=== PATIENT | male | born 1960 | race African-American/Black ===

== ENCOUNTER 2017-03-08 10:55 | Emergency (ER) | payer SELFPAY ==
[2017-03-08 11:10] VITALS: PULSE 67; TEMP 98.1; BMI 39.4
--- NOTE | 2017-03-08 11:17 | PDOC ---
History of Present Illness - General Chief Complaint: Blood Pressure Problem Stated Complaint: HYPERTENSION Time Seen by Provider: 03/08/17 11:01 History Source: Patient, Primary Care Provider Exam Limitations: No Limitations - History of Present Illness Initial Comments: This is a 56 YOM with h/o HTN on ramipril, CML on imatinib, and type II IDDM on 30U Lantus bid only, who was instructed to come to the ED by his PCP where his blood pressure was measured to be higher than normal at 190/102. The patient himself notes only slight headache to the top of his head, and slight left flank pain since awakening this morning from sleeping on the cough, but no other symptoms, and he otherwise has been feeling well lately. He worked from midnight-8am last night and went for a routine yearly physical at his PCP's office after that shift, which is where they incidentally measured his BP to be elevated. He normally takes his ramipril between noon and 2pm but he cannot remember whether or not he took it yesterday, and has not yet taken it today. He drank a cup of coffee overnight at about 3am, which is something he does not normally do because in the past it has caused increased blood pressure. He has not taken his morning Lantus yet today d/t his PCP appointment, and has not taken his blood glucose either. He additionally ate more sugar than normal this morning, and this has caused his pressures to increase in the past as well. He denies numbness, tingling, weakness, vision changes, or other symptoms. Past History - Past Medical History Allergies/Adverse Reactions: Allergies Allergy/AdvReac Type Severity Reaction Status Date / Time No Known Allergies Allergy Verified 03/08/17 11:04 Home Medications: Ambulatory Orders Insulin Glargine,Hum.rec.anlog [Lantus (10mL VIAL) -] 30 units SQ BID 10/24/15 Imatinib Mesylate [Gleevec] 400 mg PO DAILY 03/08/17 Metoprolol Succinate 50 mg PO DAILY #7 tab.er.24h 03/08/17 Ramipril 5 mg PO DAILY 03/08/17 Cancer: Yes (CLL) Diabetes: Yes HTN: Yes - Immunization History Immunization Up to Date: Yes - Suicide/Smoking/Psychosocial Hx Smoking Status: No Smoking History: Never smoked Have you smoked in the past 12 months: No Number of Cigarettes Smoked Daily: 0 Hx Alcohol Use: No Drug/Substance Use Hx: No Substance Use Type: None Review of Systems - Review of Systems Able to Perform ROS?: Yes Constitutional: No: Chills, Fever, Unexplained wgt Loss HEENTM: No: Nose Congestion, Throat Pain Respiratory: No: Cough, Shortness of Breath Cardiac (ROS): No: Chest Pain, Palpitations ABD/GI: Yes: Other (left flank pain). No: Constipated, Diarrhea, Nausea, Vomiting : No: Burning, Dysuria Musculoskeletal: No: Back Pain, Neck Pain Integumentary: No: Bruising, Rash Neurological: Yes: Headache. No: Numbness, Tingling, Weakness, Dizziness Endocrine: No: Unexplained Weight Gain, Unexplained Weight Loss *Physical Exam - Physical Exam General Appearance: Yes: Nourished, Appropriately Dressed, Other (slightly tired -appearing very tall adult male in no distress who is answering questions appropriately, appears comfortable). No: Apparent Distress HEENT: positive: EOMI, Normal Voice, Hearing Grossly Normal, Other (right pupil round and reactive to light, left pupil fixed and dilated states chronic). negative: Scleral Icterus (R), Scleral Icterus (L), Nasal Congestion Neck: positive: Trachea midline, Supple. negative: Tender, Rigid Respiratory/Chest: positive: Lungs Clear, Normal Breath Sounds. negative: Respiratory Distress, Crackles, Rhonchi, Stridor, Wheezing Cardiovascular: positive: Regular Rhythm, Regular Rate, S1, S2. negative: Edema , JVD, Murmur Gastrointestinal/Abdominal: positive: Normal Bowel Sounds, Soft, Protuberent, Other. negative: Tender, Organomegaly, Pulsatile Mass, Guarding Musculoskeletal: positive: Normal Inspection. negative: CVA Tenderness, Decreased Range of Motion, Vertebral Tenderness Extremity: positive: Normal Capillary Refill, Normal Inspection, Normal Range of Motion. negative: Tender, Cyanosis Integumentary: positive: Normal Color, Dry, Warm. negative: Erythema, Rash, Bruising Neurologic: positive: communications agent II-XII NML intact, Fully Oriented, Alert, Normal Mood/ Affect, Normal Response, Motor Strength 5/5, Finger to Nose (normal). negative : EOM Palsy, Facial Droop, Numbness, Sensory Deficit, Confused, Disoriented ED Treatment Course - LABORATORY CBC & Chemistry Diagram: 03/08/17 11:21 03/08/17 11:21 Medical Decision Making - Medical Decision Making 56 YOM with HTN, IDDM, CML p/w high BP at PCP's office, slight LESTER, slight left flank pain. May not have taken his antihypertensive yesterday, drank coffee and ate sugar this morning, no morning Lantus yet. On exam BP is 199/120, otherwise VS wnl, no distress, appears tired. DDX IBNLT essential HTN with med non-adherence/caffeine and sugar intake, HTNive emergency, HHS, DKA, AAA, ACS, AD, etc. Ordered is [facility]CD CMP Cardiac panel EKG. 03/08/17 12:15 Patient's blood pressure spontaneously decreases to 166/97, same arm (right), while resting. He is offered head CT given that his systolic BP initially was nearly 200. Patient declines head CT and states his headache has resolved already. He is given his normal midday dose of ramipril here in the ED. 03/08/17 12:20 CK total is 415, awaiting remaining results from lab. 03/08/17 12:50 ED staff spoke with lab regarding remaining cardiac panel results. public health technologist states results will be in the EMR in 20 minutes. 03/08/17 13:13 I spoke with the lab again as results are still not yet in the EMR. They notify me that the troponin is negative, CK index pending. 03/08/17 13:15 Lab calls to notify that the CK-MB is 5.4, CK-I is 1.2. 03/08/17 13:19 Patient asymptomatic at this time, BP is currently Pt is appropriate for discharge home with close OP followup. He is advised to not work tonight, work note is given to return to work the night of 03/10/17 (tomorrow night at midnight). He is instructed to take his ramipril as prescribed, same time every day, and avoid caffeine and excess sugars. Return precautions are discussed. *DC/Admit/Observation/Transfer Diagnosis at time of Disposition: Hypertension Qualifiers: Hypertension type: unspecified Qualified Code(s): I10 - Essential (primary) hypertension Caffeine adverse reaction Qualifiers: Encounter type: initial encounter Qualified Code(s): T43.615A - Adverse effect of caffeine, initial encounter Muscle strain of left upper back Qualifiers: Encounter type: initial encounter Qualified Code(s): S29.012A - Strain of muscle and tendon of back wall of thorax, initial encounter - Discharge Dispostion Disposition: HOME Condition at time of disposition: Stable - Prescriptions Prescriptions: Metoprolol Succinate 50 mg PO DAILY #7 tab.er.24h - Referrals - Patient Instructions Printed Discharge Instructions: DI for High Blood Pressure Additional Instructions: You were seen in the ER for elevated blood pressure with a slight headache and slight left flank pain. We did find your blood pressure to be high, and gave you your normal dose of ramipril, as well as another blood pressure medicine called metoprolol. We did lab work on your blood and did not find any concerning abnormalities. We also took an electrocardiogram which showed only chronic changes in your heart activity (nothing new that was concerning). Please start taking your home ramipril again tomorrow at the normal time. Please also take the metoprolol we are sending to your pharmacy. Please avoid caffeine and excess sugar. Please follow up with your PCP in the next week, or return to the ER for any new or worsening symptoms (especially chest pain, headache, etc) or for elevated blood pressure at home. - Post Discharge Activity
--- NOTE | 2017-03-08 11:41 | PDOC ---
Attending Attestation - Resident Resident Name: LoraVita - ED Attending Attestation I have performed the following: I have examined & evaluated the patient, The case was reviewed & discussed with the resident, I agree w/resident's findings & plan, Exceptions are as noted - HPI HPI: 03/08/17 11:35 56 M with h/o HTN, DM, CML presenting to ER with elevated BP. Pt was in PMD's office and found to have BP 190s systolic and was subsequently sent to ER for management. Pt is on ramipril 5mg daily. Per conversation with PMD, Dr. Lopes , pt has questionable compliance with his meds. Pt admits that he does not recall if he took his ramipril yesterday. Pt denies CP/SOB. Endorses mild LESTER without N/V. - Physicial Exam PE: 03/08/17 11:45 "GENERAL: Awake, alert, and fully oriented, in no acute distress HEAD: No signs of trauma EYES: PERRLA, EOMI, sclera anicteric, conjunctiva clear ENT: Auricles normal inspection, hearing grossly normal, nares patent, oropharynx clear without exudates. Moist mucosa NECK: Nontender, no stepoffs, Normal ROM, supple, no lymphadenopathy, JVD, or masses LUNGS: Breath sounds equal, clear to auscultation bilaterally. No wheezes, and no crackles HEART: Regular rate and rhythm, normal S1 and S2, no murmurs, rubs or gallops ABDOMEN: Soft, nontender, normoactive bowel sounds. No guarding, no rebound. No masses EXTREMITIES: Normal range of motion, no edema. No clubbing or cyanosis. No cords, erythema, or tenderness NEUROLOGICAL: Cranial nerves II through XII intact. 5/5 strength and sensation in all extremities, Normal speech, normal gait SKIN: Warm, Dry, normal turgor, no rashes or lesions noted. " - Medical Decision Making 03/08/17 11:45 56 M with hypertension, BP 190s in ER. Only complaint at this time is mild headache. Will r/o end organ damage with basic labs, head CT. - Labs, trop - CT head - Home dose ramipril - Reassess 03/08/17 12:18 Pt's BP improved to 160 systolic before any intervention. LESTER spontaneously resolved. Pt with non-focal neuro exam. Pt does not wish to have CT head at this time. Given resolution of LESTER with improvement in BP and non-focal exam, will defer CT imaging for now. Labs wnl. Pt reassessed s/p ramipril and metoprolol. Vitals now improved. Pt continues to appear well with no complaints. Clinically stable for DC. Will send home with script for metoprolol to take in conjunction with his ramipril. Discussed with pt's PMD Dr. Lopes, who agrees with plan. I discussed the physical exam findings, ancillary test results and final diagnoses with the patient. I answered all of the patient's questions. The patient was satisfied with the care received and felt comfortable with the discharge plan and treatment plan. The patient agrees to follow up with the primary care physician within 24-72 hours for further management of his blood pressure. Heart Score/ECG Review - ECG Impressions Comment:: 03/08/17 13:27 NSR, no ADRIAN/STDs, TWI in inferior leads present on prior EKG 2011, incomplete RBBB also present on prior EKG
[2017-03-08 11:48] LABS: BASO % 0.9 % (0-2.0); EOS % 1.2 % (0-4.5); HEMATOCRIT 38.2 % (35.4-49); HEMOGLOBIN 12.7 GM/dl (11.7-16.9); LYMPH % 20.7 % (8-40); MCH 29.9 pg (25.7-33.7); MCHC 33.1 g/dl (32.0-35.9); MEAN CELL VOLUME 90.4 fl (80-96); MEAN PLT VOLUME 11.3 fl (7.5-11.1); MONO % 7.7 % (3.8-10.2); NEUT % 69.5 % (42.8-82.8); PLATELET COUNT 103 K/MM3 (134-434); RBC 4.23 M/mm3 (4.00-5.60); RDW 14.7 % (11.9-15.9); WHITE BLOOD COUNT 8.7 K/mm3 (4.0-10.8)
[2017-03-08] MEDS ORDERED: RAMIPRIL 5 MG CAPSULE (FP) PO ONE (11:49)
[2017-03-08 12:15] LABS: ALBUMIN 3.6 g/dl (3.5-5.0); ALK PHOS 70 U/L (32-92); ANION GAP 2 (8-16); BILIRUBIN,TOTAL 0.8 mg/dl (0.2-1.0); BLOOD UREA NITROGEN 14 mg/dl (7-18); CALCIUM 8.4 mg/dl (8.4-10.2); CHLORIDE 106 mmol/L (98-107); CO2 26 mmol/L (22-28); CREATININE 1.2 mg/dl (0.6-1.3); GLUCOSE,RANDOM 185 mg/dl (74-106); POTASSIUM 3.5 mmol/L (3.5-5.1); SGOT/AST 20 U/L (10-42); SGPT/ALT 16 U/L (10-40); SODIUM 134 mmol/L (136-145); TOT PROT 6.1 g/dl (6.4-8.3)
[2017-03-08] MEDS ORDERED: LABETALOL HCL 200 MG TABLET (FP) PO ONE (12:57)
[2017-03-08] MEDS ORDERED: METOPROLOL SUCCINATE 50 MG TAB.SR.24H (FP) PO ONE (13:00)
[2017-03-08] MEDS ORDERED: METOPROLOL SUCCINATE 50 MG TAB.SR.24H (FP) ONE (13:01)
[2017-03-08 13:57] VITALS: BP 169/92
--- NOTE | 2017-03-09 09:00 | EKG ---
Test Reason : Blood Pressure : / mmHG Vent. Rate : 062 BPM Atrial Rate : 062 BPM P-R Int : 160 ms QRS Dur : 100 ms QT Int : 416 ms P-R-T Axes : 063 -29 -52 degrees QTc Int : 422 ms NORMAL SINUS RHYTHM INCOMPLETE RIGHT BUNDLE BRANCH BLOCK MINIMAL VOLTAGE CRITERIA FOR LVH, MAY BE NORMAL VARIANT T WAVE ABNORMALITY, CONSIDER INFERIOR ISCHEMIA ABNORMAL ECG NO PREVIOUS ECGS AVAILABLE Confirmed by PETRONA WHITTINGTON MD ([id number]) on 03/09/2017 9:00:38 AM Referred By: MD ZHOU Confirmed By:PETRONA WHITTINGTON MD
== END 2017-03-08 14:24 | disposition home or self-care (01) ==
LOC: FER 10:55
DX: I10 Essential (primary) hypertension (principal); T43.615A Adverse effect of caffeine, initial encounter; S29.012A Strain of muscle and tendon of back wall of thorax, initial encounter; C91.10 Chronic lymphocytic leukemia of B-cell type not having achieved remission; E11.9 Type 2 diabetes mellitus without complications; Z79.4 Long term (current) use of insulin
CPT/HCPCS: 36415; 80053; 82550; 82553; 84484; 85025; 93005; 99282-25

== ENCOUNTER 2017-07-23 07:44 | Emergency (ER) | payer OTHER ==
[2017-07-23 07:58] VITALS: PULSE 70; TEMP 98.7; BMI 35.6
--- NOTE | 2017-07-23 08:08 | PDOC ---
History of Present Illness - General Chief Complaint: Blood Sugar Problem Stated Complaint: FATIGUE POSSIBLE ELEVATED BLOOD SUGAR Time Seen by Provider: 07/23/17 07:49 History Source: Patient Exam Limitations: No Limitations - History of Present Illness Initial Comments: 07/23/17 08:11 57-year-old gentleman history of hypertension, CML, type II DM on insulin glargine presents for evaluation of malaise/generalized weakness and possible hyperglycemia. Patient states that he's been feeling generally weak, malaise for the past 2 weeks, he went to his PMD had blood work noted to have blood sugar of 405 yesterday. The patient also endorses urinating more but also notes he drinks a lot which is typical for him. The patient denies any recent fever, chills, chest pain, shortness of breath, coughing, nausea, vomiting or diarrhea , dysuria, blood per rectum, headache, dizziness, vision changes, numbness, tingling, weakness, abdominal pain, back pain, leg swelling. The patient states he has been having some dietary indiscretion he is eating more cookies and sweets. Past History - Past Medical History Allergies/Adverse Reactions: Allergies Allergy/AdvReac Type Severity Reaction Status Date / Time No Known Allergies Allergy Verified 07/23/17 07:58 Home Medications: Ambulatory Orders Ramipril 5 mg PO DAILY 03/08/17 Insulin Glargine,Hum.rec.anlog [Lantus] 30 unit SQ BID 07/23/17 Nilotinib HCl [Tasigna] 50 mg PO BID 07/23/17 Cancer: Yes (CML) COPD: No Diabetes: Yes HTN: Yes Hypercholesterolemia: Yes - Immunization History Immunization Up to Date: Yes - Suicide/Smoking/Psychosocial Hx Smoking Status: No Smoking History: Never smoked Have you smoked in the past 12 months: No Number of Cigarettes Smoked Daily: 0 Information on smoking cessation initiated: No Hx Alcohol Use: No Drug/Substance Use Hx: No Substance Use Type: None Review of Systems - Review of Systems Able to Perform ROS?: Yes Comments:: 07/23/17 08:14 Constitutional - +malaise no reported Fever, Chills, HEENT: no reported vision changes, sore throat Respiratory: no reported cough, sob, hemoptysis Cardiac: no reported chest pain, palpitations, light headedness, leg swelling Abd/GI: no reported abd pain, nausea, vomiting, blood per rectum, melena, diarrhea : +polyuria no reported dysuria, frequency, discharge Musculskelatal - no reported back pain, joint swelling skin - no reported bruising, erythema, rash neurological: no reported headache, numbness, focal weakness, tingling, ataxia, hematologic: no reported easy bruising, easy bleeding *Physical Exam - Vital Signs Last Vital Signs Temp Pulse Resp BP Pulse Ox 98.7 F 70 20 188/108 99 07/23/17 07:47 07/23/17 07:47 07/23/17 07:47 07/23/17 07:47 07/23/17 07:47 - Physical Exam Comments: 07/23/17 08:15 GENERAL: The patient is awake, alert, and fully oriented, Nontoxic - in no acute distress. HEAD: Normocephalic, atraumatic. EYES: extraocular movements intact, sclera anicteric, conjunctiva clear. ENT: Normal voice, Moist mucous membranes. NECK: Normal range of motion, supple LUNGS: Breath sounds equal, clear to auscultation bilaterally. No wheezes, no rhonchi, no rales. HEART: Regular rate and rhythm, normal S1 and S2 without murmur, rub or gallop. ABDOMEN: Soft, nontender, normoactive bowel sounds. No guarding, no rebound. . No CVA tenderness EXTREMITIES: Normal range of motion, no edema. No clubbing or cyanosis. No cords, erythema, or tenderness. NEUROLOGICAL: No facial assymetry, Normal speech, PSYCH: Normal mood, normal affect. SKIN: Warm, Dry, normal turgor, Heart Score/ECG Review - ECG Impressions Comment:: 07/23/17 08:24 Twelve-lead EKG was performed and reviewed by me. There is normal sinus rhythm with a normal rate. Rate of 65 T wave inversion in inferior leads ((present on prior EKGs dated March 08 2017 ) J-point elevation with ST elevation in the anterior leads (present on prior EKGs dated March 08 2017) No significant change when compared with prior EKG ED Treatment Course - LABORATORY CBC & Chemistry Diagram: 07/23/17 08:54 07/23/17 08:54 Medical Decision Making - Medical Decision Making 07/23/17 08:15 57-year-old gentleman history of hypertension, diabetes, CML presenting with malaise for several weeks without any focal complaints. his exam is unremarkable. Vitals unremarkable Differential for this patient's symptoms includes possible, anemia, metabolic derangements, hyperglycemia, DKA, ACS Will obtain screening blood work, screening EKG Obtain BGM if the patient is hyperglycemic will fluids and insulin 07/23/17 09:48 Patient's blood work was reviewed and noted for thrombocytopenia to 32, no signs of bleeding, anemia. The patient states that he is aware of thrombocytopenia is notified by his doctor that is thought to be secondary to his medications he is on for his CML. 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 His blood sugar is elevated to 387, will give the patient some fluids will recheck No signs of DKA Serum acetones negative 07/23/17 10:49 pts blodo sugar improved to 325 will dc the pt with pmd and endocrine fu. The pt has an endo referral from his PMD and he just has yet to call for an appointment. i recommendd the pt call [facility] to make the ppt and to fu with his doctor for evaluation of his blood sugar also recommended the pt to stay away from sweets and carbs and to increase his physical activity. I discussed the physical exam findings, ancillary test results and final diagnoses with the patient. I answered all of the patient's questions. The patient was satisfied with the care received and felt comfortable with the discharge plan and treatment plan. The patient will call their primary care physician within 24 hours to arrange follow-up and will return to the Emergency Department with any new, persistent or worsening symptoms. *DC/Admit/Observation/Transfer Diagnosis at time of Disposition: Hyperglycemia, Thrombocytopenia - Discharge Dispostion Disposition: HOME Condition at time of disposition: Improved Decision to Admit order: No - Referrals Referrals: Hilario Rojas MD [Staff Physician] - - Patient Instructions Printed Discharge Instructions: DI for Hyperglycemia -- Adult Additional Instructions: Return to the emergency department immediately with ANY new, persistent or worsening symptoms. Your platelets were low and you have high blood sugar. Please schedule the appointment with your label rewinder for further management. You MUST call and follow up with your doctorfor further evaluation of your symptoms. Results were discussed with you. Please make sure your doctor reviews the results of your emergency evaluation. Print Language: IRANIAN - Post Discharge Activity
[2017-07-23] MEDS ORDERED: HEMOQUE TEST 1 EACH EACH ONE ×2 (08:15→10:38)
[2017-07-23 08:39] LABS: URINE APPEARANCE CLEAR; URINE BILIRUBIN NEGATIVE (NEGATIVE); URINE COLOR YELLOW; URINE GLUCOSE (UA) 2+ (NEGATIVE); URINE KETONE NEGATIVE (NEGATIVE)
[2017-07-23 08:40] LABS: URINE LEUK ESTERASE NEGATIVE (NEGATIVE); URINE NITRITE NEGATIVE (NEGATIVE); URINE PROTEIN 2+ (NEGATIVE); URINE UROBILINOGEN 0.2 (0.2-1.0)
[2017-07-23 09:19] LABS: ALBUMIN 3.8 g/dl (3.5-5.0); ALK PHOS 78 U/L (32-92); ANION GAP 6 (8-16); BILIRUBIN,TOTAL 1.2 mg/dl (0.2-1.0); BLOOD UREA NITROGEN 21 mg/dl (7-18); CALCIUM 8.9 mg/dl (8.4-10.2); CHLORIDE 101 mmol/L (98-107); CO2 25 mmol/L (22-28); CREATININE 1.2 mg/dl (0.6-1.3); HEMATOCRIT 35.5 % (35.4-49); HEMOGLOBIN 12.1 GM/dl (11.7-16.9); MCH 29.5 pg (25.7-33.7); MCHC 33.9 g/dl (32.0-35.9); MEAN CELL VOLUME 87.1 fl (80-96); RBC 4.08 M/mm3 (4.00-5.60); RDW 16.1 % (11.9-15.9); SGOT/AST 18 U/L (10-42); SGPT/ALT 20 U/L (10-40); SODIUM 132 mmol/L (136-145); TOT PROT 6.2 g/dl (6.4-8.3); WHITE BLOOD COUNT 4.9 K/mm3 (4.0-10.8)
--- NOTE | 2017-07-23 09:23 | EKG ---
Test Reason : Blood Pressure : / mmHG Vent. Rate : 065 BPM Atrial Rate : 065 BPM P-R Int : 148 ms QRS Dur : 096 ms QT Int : 418 ms P-R-T Axes : 071 -30 -37 degrees QTc Int : 434 ms NORMAL SINUS RHYTHM LEFT AXIS DEVIATION ST ELEVATION, CONSIDER EARLY REPOLARIZATION, PERICARDITIS, OR INJURY T WAVE ABNORMALITY, CONSIDER INFERIOR ISCHEMIA ABNORMAL ECG WHEN COMPARED WITH ECG OF 08-MAR-2017 11:15, NO SIGNIFICANT CHANGE WAS FOUND Confirmed by PJ HERNANDEZ, DUY ([id number]) on 07/23/2017 9:22:38 AM Referred By: RAMON WOMACK Confirmed By:DUY OLIVA MD
[2017-07-23 09:25] LABS: ADD RBC MORPHOLOGY YES
[2017-07-23 09:26] LABS: PLATELET COUNT 32 K/MM3 (134-434)
[2017-07-23 09:32] LABS: GLUCOSE,RANDOM 386 mg/dl (74-106)
[2017-07-23 09:40] LABS: URINE RBC 0-3 /hpf (0-3); URINE WBC 0-2 (0-2)
[2017-07-23] MEDS ORDERED: SODIUM CHLORIDE 1,000 ML IV ONE (09:48)
[2017-07-23 10:25] LABS: PLATELET ESTIMATE DECREASED
[2017-07-23 10:45] VITALS: BP 142/76
== END 2017-07-23 11:02 | disposition home or self-care (01) ==
LOC: FER 07:44
PROC: 3E0337Z Introduction of Electrolytic and Water Balance Substance into Peripheral Vein, Percutaneous Approach (ICD-10-PCS; principal; 2017-07-23)
DX: D69.6 Thrombocytopenia, unspecified (principal); E11.65 Type 2 diabetes mellitus with hyperglycemia; C92.10 Chronic myeloid leukemia, BCR/ABL-positive, not having achieved remission; I10 Essential (primary) hypertension
CPT/HCPCS: 36415; 80053; 81003; 81015; 82009; 82962; 85025; 93005; 99283-25; J7030

== ENCOUNTER 2018-12-26 23:15 | Emergency (ER) | payer OTHER ==
[2018-12-26 23:33] VITALS: BP 202/117; PULSE 83; TEMP 99.2; BMI 34.0
--- NOTE | 2018-12-27 02:12 | PDOC ---
History of Present Illness - General Chief Complaint: Pain, Acute Stated Complaint: BURNING/RASH TO LEFT ANKLE Time Seen by Provider: 12/27/18 00:59 - History of Present Illness Initial Comments: 12/27/18 01:04 This 58-year-old man with a history of IDDM and CML presents with few day history of pruritus of a small area of the left heel. Patient states that the itchiness is particularly severe when he is walking around and subsides with rest. No history of trauma, swelling, pain in the area that is itchy. He has not noted any rash in the area. He has not had any insect bites and he does not have animals at home. He also has occasional burning sensation in his feet that he thinks may be related to bouts of constipation. He had a rash of the proximal portion of the left leg several months ago treated with ammonium lactate lotion. He states that he has no similar rash now Patient denies generalized pruritus, jaundice, extreme hyperglycemia (patient states that his blood sugar control is "adequate) Past History - Past Medical History Allergies/Adverse Reactions: Allergies Allergy/AdvReac Type Severity Reaction Status Date / Time No Known Allergies Allergy Verified 12/26/18 23:18 Home Medications: Ambulatory Orders Ramipril 5 mg PO DAILY 03/08/17 Insulin Glargine,Hum.rec.anlog [Lantus] 30 unit SQ BID 07/23/17 Nilotinib HCl [Tasigna] 50 mg PO BID 07/23/17 Cancer: Yes (CML) COPD: No Diabetes: Yes HTN: Yes Hypercholesterolemia: Yes - Immunization History Immunization Up to Date: Yes - Psycho Social/Smoking Cessation Hx Smoking Status: No Smoking History: Never smoked Have you smoked in the past 12 months: No Number of Cigarettes Smoked Daily: 0 Information on smoking cessation initiated: No Hx Alcohol Use: No Drug/Substance Use Hx: No Substance Use Type: None Review of Systems - Review of Systems Able to Perform ROS?: Yes Comments:: 12 point review of systems is negative except for what is noted in the history of present illness *Physical Exam - Vital Signs Last Vital Signs Temp Pulse Resp BP Pulse Ox 99.2 F 83 17 202/117 H 98 12/26/18 23:28 12/26/18 23:28 12/26/18 23:28 12/26/18 23:28 12/26/18 23:28 - Physical Exam Comments: GENERAL: Adult male, alert and oriented x3, no acute distress HEAD: Normal with no signs of trauma. EXTREMITIES: Left lower extremity-pruritic area (3 cm x 4 cm region below the lateral malleolus of the left ankle) has no rash, edema, erythema or other abnormality. No evidence of skin break or insect bites. NEUROLOGICAL: Cranial nerves II through XII grossly intact. Normal speech. No focal neurological deficits. MUSCULOSKELETAL: Back non-tender to palpation, no CVA tenderness SKIN: Warm, Dry, normal turgor, no rashes or lesions noted. Medical Decision Making - Medical Decision Making This 58-year-old man with a history of DM and CML presents with isolated area of itching; he has no evidence of generalized pruritus and no evidence of rash or edema/inflammation in the area of pruritus below his left lateral malleolus. Patient has been recommended to monitor the area closely; if he has any increase in swelling, redness or development of a rash he should return here. Likewise, he has development of generalized pruritus he should return here or see his doctor. He has follow-up with his oncologist on December 28. He should also plan to see his general medical doctor within 1 week. Meanwhile, if he has bothersome localized pruritus, he can use antihistamine( benadryl if he does not need to be alert/otherwise non-sedating antihistamines) Discharge - Discharge Information Problems reviewed: Yes Clinical Impression/Diagnosis: Pruritus Condition: Stable Disposition: HOME - Follow up/Referral - Patient Discharge Instructions Patient Printed Discharge Instructions: DI for Itching Additional Instructions: Benadryl 25 mg up to 3 times a day as needed for itching (this will make you sleepy) When you need to be alert, you can use Claritin/Zyrtec/Aure as needed for itching Follow-up with your oncologist on December 28 Plan to follow-up with your general medical doctor within the next 7 to 10 days Return to ER if you have severe itching or develop a rash/redness/swelling in the area - Post Discharge Activity Work/Back to School Note: Back to Work
== END 2018-12-27 02:30 | disposition home or self-care (01) ==
LOC: FER 23:15
DX: L29.9 Pruritus, unspecified (principal); E11.9 Type 2 diabetes mellitus without complications; C92.10 Chronic myeloid leukemia, BCR/ABL-positive, not having achieved remission; E78.00 Pure hypercholesterolemia, unspecified; I10 Essential (primary) hypertension; Z79.4 Long term (current) use of insulin
CPT/HCPCS: 99281-25

== ENCOUNTER 2020-03-19 16:57 | Inpatient (IN) | payer OTHER ==
[2020-03-19 21:39] LABS: BASO % 4.4 % (0-2.0); EOS % 0.6 % (0-4.5); HEMOGLOBIN 8.7 GM/dL (11.7-16.9); LYMPH % 6.5 % (8-40); MCH 26.5 pg (25.7-33.7); MCHC 32.2 g/dl (32.0-35.9); MEAN CELL VOLUME 82.2 fl (80-96); MEAN PLT VOLUME 10.4 fl (7.5-11.1); MONO % 9.7 % (3.8-10.2); NEUT % 78.8 % (42.8-82.8); PLATELET COUNT 331 K/MM3 (134-434); RBC 3.29 M/mm3 (4.00-5.60); RDW 17.1 % (11.9-15.9)
[2020-03-19 21:42] LABS: WHITE BLOOD COUNT 34.8 K/mm3 (4.0-10.0)
[2020-03-19 21:51] LABS: CHLORIDE 106 mmol/L (98-107); INR 1.2 (0.83-1.09); POTASSIUM 4.3 mmol/L (3.5-5.1); PROTHROMBIN TIME (PATIENT) 14.7 SEC (9.7-13.0); SODIUM 136 mmol/L (136-145)
[2020-03-19] MEDS ORDERED: SODIUM CHLORIDE 1,000 ML IV STA (21:52)
[2020-03-19 21:53] LABS: ALBUMIN 2.6 g/dl (3.4-5.0); ANION GAP 5 MMOL/L (8-16); CALCIUM 8.5 mg/dL (8.5-10.1); CO2 26 mmol/L (21-32)
[2020-03-19 21:54] LABS: ACTIVATED PTT 31.3 SECONDS (25.2-36.5); BLOOD UREA NITROGEN 19.8 mg/dL (7-18); GLUCOSE,RANDOM 318 mg/dL (74-106)
[2020-03-19 21:56] LABS: BILIRUBIN,DIRECT 0.2 mg/dL (0.0-0.2); CREATININE 2.1 mg/dL (0.55-1.3); SGOT/AST 12 U/L (15-37); SGPT/ALT 24 U/L (13-61)
[2020-03-19 21:58] LABS: BILIRUBIN,TOTAL 0.5 mg/dL (0.2-1); TOT PROT 6.7 g/dl (6.4-8.2)
[2020-03-19 21:59] LABS: ALK PHOS 91 U/L (45-117)
[2020-03-19 22:00] LABS: LDH 434 U/L (87-246)
[2020-03-19 22:29] LABS: VENOUS BASE EXCESS -1.7 mmol/L (-2-2); VENOUS O2 SATURATION 69.3 % (70-80); VENOUS PCO2 41.1 mmHg (38-52); VENOUS PH 7.373 (7.310-7.410)
[2020-03-19 22:41] LABS: ANISOCYTOSIS 2+; MACROCYTOSIS 0; PLATELET ESTIMATE NORMAL
[2020-03-20] MEDS ORDERED: SODIUM CHLORIDE 1,000 ML IV SCH ×2 (02:45→13:34)
[2020-03-20] MEDS: INSULIN SLIDING SCALE (NOVOLOG) 1 VIAL SQ SCH ×4 (06:31→21:03)
[2020-03-20 08:14] LABS: BASO % 4.2 % (0-2.0); EOS % 0.6 % (0-4.5); HEMATOCRIT 26.1 % (35.4-49); HEMOGLOBIN 8.5 GM/dL (11.7-16.9); LYMPH % 6.7 % (8-40); MCH 26.7 pg (25.7-33.7); MCHC 32.6 g/dl (32.0-35.9); MEAN CELL VOLUME 81.8 fl (80-96); MONO % 11.3 % (3.8-10.2); NEUT % 77.2 % (42.8-82.8); PLATELET COUNT 325 K/MM3 (134-434); RBC 3.19 M/mm3 (4.00-5.60); RDW 16.8 % (11.9-15.9)
[2020-03-20 08:26] LABS: POTASSIUM 4.2 mmol/L (3.5-5.1)
[2020-03-20 08:32] LABS: ALBUMIN 2.4 g/dl (3.4-5.0); CALCIUM 8.2 mg/dL (8.5-10.1)
[2020-03-20 08:33] LABS: MAGNESIUM 1.8 mg/dL (1.8-2.4)
[2020-03-20 08:35] LABS: CREATININE 1.9 mg/dL (0.55-1.3)
[2020-03-20 08:36] LABS: PHOSPHOROUS 3.7 mg/dL (2.5-4.9)
[2020-03-20 08:37] LABS: BILIRUBIN,TOTAL 0.5 mg/dL (0.2-1); TOT PROT 6.3 g/dl (6.4-8.2)
[2020-03-20] MEDS ORDERED: HEPARIN NA (PORCINE) 5,000 UNITS/ML 1ML VIAL SQ SCH (10:00)
[2020-03-20] MEDS ORDERED: ENOXAPARIN NA (PORCINE) 100 MG/1 ML DISP.SYRIN SQ SCH (10:30)
[2020-03-20] MEDS ORDERED: HEPARIN NA (PORCINE) 5,000 UNITS/ML 1ML VIAL ONE (11:08)
[2020-03-20 11:42] LABS: ANISOCYTOSIS 1+; MACROCYTOSIS 0; PLATELET ESTIMATE NORMAL
[2020-03-20 11:52] LABS: EPI CELLS 18 /uL (0-25.1); HYALINE CASTS 13 /uL (0-3.1); URINE APPEARANCE CLOUDY; URINE BACTERIA 85 /uL (0-1359); URINE BILIRUBIN NEGATIVE (NEGATIVE); URINE COLOR YELLOW; URINE GLUCOSE (UA) 2+ (NEGATIVE); URINE KETONE NEGATIVE (NEGATIVE); URINE LEUK ESTERASE NEGATIVE (NEGATIVE); URINE NITRITE NEGATIVE (NEGATIVE); URINE PROTEIN 3+ (NEGATIVE); URINE RBC 7 /uL (0-23.9); URINE UROBILINOGEN 0.2 mg/dL (0.2-1.0); URINE WBC 16 /uL (0-25.8)
[2020-03-20 12:24] LABS: WHITE BLOOD COUNT 35.3 K/mm3 (4.0-10.0)
[2020-03-20] MEDS ORDERED: LACTATED RINGERS SOLUTION 1,000 ML/1,000 ML INFUS.BAG IV SCH (15:30)
[2020-03-20] MEDS ORDERED: CEFTRIAXONE 1 GM/50 ML BAG ONE (16:10)
[2020-03-20] MEDS ORDERED: AZITHROMYCIN IVPB 500 MG/250 ML BAG IVPB ONE (16:10)
[2020-03-20] MEDS: LACTATED RINGERS SOLUTION 1,000 ML/1,000 ML INFUS.BAG IV SCH (16:15)
[2020-03-20] MEDS: CEFTRIAXONE 1 GM in DEXTROSE 5%-WATER - 50 ML IVPB SCH (16:15)
[2020-03-20] MEDS: AZITHROMYCIN IVPB 500 MG/250 ML BAG IVPB SCH (16:30)
[2020-03-20] MEDS: ATORVASTATIN CA 40 MG TABLET (FP) PO SCH (21:04)
[2020-03-21 00:01] VITALS: BMI 32.6
[2020-03-21] MEDS: INSULIN SLIDING SCALE (NOVOLOG) 1 VIAL SQ SCH ×4 (06:14→21:36)
[2020-03-21 08:02] LABS: BASO % 5.7 % (0-2.0); EOS % 1.1 % (0-4.5); HEMATOCRIT 23.4 % (35.4-49); HEMOGLOBIN 7.7 GM/dL (11.7-16.9); MCH 27.2 pg (25.7-33.7); MCHC 33.2 g/dl (32.0-35.9); MONO % 10.8 % (3.8-10.2); NEUT % 75.4 % (42.8-82.8); PLATELET COUNT 275 K/MM3 (134-434); RBC 2.85 M/mm3 (4.00-5.60); RDW 17.5 % (11.9-15.9)
[2020-03-21 08:24] LABS: POTASSIUM 4.5 mmol/L (3.5-5.1)
[2020-03-21 08:31] LABS: CALCIUM 7.7 mg/dL (8.5-10.1)
[2020-03-21 08:32] LABS: ALBUMIN 2.3 g/dl (3.4-5.0); BLOOD UREA NITROGEN 18.7 mg/dL (7-18); MAGNESIUM 1.7 mg/dL (1.8-2.4)
[2020-03-21 08:34] LABS: CREATININE 1.8 mg/dL (0.55-1.3)
[2020-03-21 08:35] LABS: PHOSPHOROUS 3.2 mg/dL (2.5-4.9)
[2020-03-21 08:36] LABS: BILIRUBIN,TOTAL 0.5 mg/dL (0.2-1); TOT PROT 5.7 g/dl (6.4-8.2)
[2020-03-21 08:38] LABS: WHITE BLOOD COUNT 32.9 K/mm3 (4.0-10.0)
[2020-03-21] MEDS ORDERED: MAGNESIUM OXIDE 400 MG TABLET (FP) PO ONE (08:55)
[2020-03-21] MEDS ORDERED: DEXTROSE 5%-WATER - 50 ML IVPB ONE (09:04)
[2020-03-21] MEDS ORDERED: cefTRIAXone SODIUM 1 GM VIAL ONE (09:04)
[2020-03-21] MEDS: ENOXAPARIN NA (PORCINE) 40 MG/0.4 ML DISP.SYRIN SQ SCH (09:35)
[2020-03-21] MEDS: CEFTRIAXONE 1 GM in DEXTROSE 5%-WATER - 50 ML IVPB SCH (09:35)
[2020-03-21 10:06] LABS: ANISOCYTOSIS 0; MACROCYTOSIS 0; PLATELET ESTIMATE NORMAL
[2020-03-21] MEDS: AZITHROMYCIN IVPB 500 MG/250 ML BAG IVPB SCH (10:58)
[2020-03-21] MEDS: LACTATED RINGERS SOLUTION 1,000 ML/1,000 ML INFUS.BAG IV SCH (15:59)
[2020-03-21] MEDS: POLYETHYLENE GLYCOL 3350 119 GM BTL PO SCH (16:45)
[2020-03-21] MEDS: INSULIN (LEVEMIR) 100 UNITS/ML UNITS SQ SCH (21:37)
[2020-03-21] MEDS: ATORVASTATIN CA 40 MG TABLET (FP) PO SCH (21:37)
[2020-03-22] MEDS: INSULIN (LEVEMIR) 100 UNITS/ML UNITS SQ SCH ×2 (07:00→21:48)
[2020-03-22] MEDS: INSULIN SLIDING SCALE (NOVOLOG) 1 VIAL SQ SCH ×4 (07:00→21:48)
[2020-03-22] MEDS ORDERED: cefTRIAXone SODIUM 1 GM VIAL ONE (08:21)
[2020-03-22] MEDS ORDERED: DEXTROSE 5%-WATER - 50 ML IVPB ONE (08:21)
[2020-03-22 09:04] LABS: BASO % 4.9 % (0-2.0); EOS % 0.7 % (0-4.5); HEMATOCRIT 24.5 % (35.4-49); HEMOGLOBIN 7.9 GM/dL (11.7-16.9); LYMPH % 6.7 % (8-40); MCH 26.6 pg (25.7-33.7); MCHC 32.2 g/dl (32.0-35.9); MEAN CELL VOLUME 82.6 fl (80-96); MONO % 10.2 % (3.8-10.2); NEUT % 77.5 % (42.8-82.8); PLATELET COUNT 252 K/MM3 (134-434); RBC 2.97 M/mm3 (4.00-5.60); RDW 17.5 % (11.9-15.9)
[2020-03-22 09:28] LABS: POTASSIUM 4.7 mmol/L (3.5-5.1); WHITE BLOOD COUNT 34.4 K/mm3 (4.0-10.0)
[2020-03-22 09:30] LABS: ALBUMIN 2.2 g/dl (3.4-5.0); CALCIUM 8.2 mg/dL (8.5-10.1)
[2020-03-22 09:31] LABS: BLOOD UREA NITROGEN 12.7 mg/dL (7-18); MAGNESIUM 1.6 mg/dL (1.8-2.4)
[2020-03-22 09:33] LABS: CREATININE 1.5 mg/dL (0.55-1.3); PHOSPHOROUS 3.1 mg/dL (2.5-4.9)
[2020-03-22 09:35] LABS: BILIRUBIN,TOTAL 0.4 mg/dL (0.2-1); TOT PROT 5.6 g/dl (6.4-8.2)
[2020-03-22] MEDS: ENOXAPARIN NA (PORCINE) 40 MG/0.4 ML DISP.SYRIN SQ SCH (09:54)
[2020-03-22] MEDS: CEFTRIAXONE 1 GM in DEXTROSE 5%-WATER - 50 ML IVPB SCH (09:54)
[2020-03-22] MEDS: POLYETHYLENE GLYCOL 3350 119 GM BTL PO SCH (09:57)
[2020-03-22] MEDS: AZITHROMYCIN IVPB 500 MG/250 ML BAG IVPB SCH (10:27)
[2020-03-22] MEDS ORDERED: MAGNESIUM OXIDE 400 MG TABLET (FP) PO ONE (10:45)
[2020-03-22 10:54] LABS: ANISOCYTOSIS 1+; MACROCYTOSIS 0; PLATELET ESTIMATE NORMAL; TEAR DROP CELLS 1+
[2020-03-22] MEDS: LACTATED RINGERS SOLUTION 1,000 ML/1,000 ML INFUS.BAG IV SCH (16:50)
[2020-03-22] MEDS: ATORVASTATIN CA 40 MG TABLET (FP) PO SCH (21:48)
[2020-03-23] MEDS: INSULIN SLIDING SCALE (NOVOLOG) 1 VIAL SQ SCH ×2 (06:28→11:23)
[2020-03-23] MEDS: INSULIN (LEVEMIR) 100 UNITS/ML UNITS SQ SCH (06:28)
[2020-03-23 07:49] LABS: BASO % 5.2 % (0-2.0); EOS % 0.8 % (0-4.5); HEMATOCRIT 25.2 % (35.4-49); HEMOGLOBIN 8.2 GM/dL (11.7-16.9); MCH 26.7 pg (25.7-33.7); MCHC 32.7 g/dl (32.0-35.9); MEAN CELL VOLUME 81.5 fl (80-96); MEAN PLT VOLUME 9.7 fl (7.5-11.1); MONO % 11.1 % (3.8-10.2); NEUT % 76.9 % (42.8-82.8); PLATELET COUNT 255 K/MM3 (134-434); RBC 3.09 M/mm3 (4.00-5.60); RDW 17.7 % (11.9-15.9)
[2020-03-23 08:17] LABS: POTASSIUM 4.6 mmol/L (3.5-5.1)
[2020-03-23 08:24] LABS: MAGNESIUM 1.7 mg/dL (1.8-2.4)
[2020-03-23 08:26] LABS: BLOOD UREA NITROGEN 11.4 mg/dL (7-18)
[2020-03-23 08:27] LABS: ALBUMIN 2.3 g/dl (3.4-5.0); CALCIUM 8.3 mg/dL (8.5-10.1)
[2020-03-23 08:28] LABS: CREATININE 1.4 mg/dL (0.55-1.3)
[2020-03-23 08:30] LABS: PHOSPHOROUS 3.6 mg/dL (2.5-4.9)
[2020-03-23 08:32] LABS: BILIRUBIN,TOTAL 0.3 mg/dL (0.2-1); TOT PROT 5.7 g/dl (6.4-8.2)
[2020-03-23 08:38] LABS: WHITE BLOOD COUNT 38.6 K/mm3 (4.0-10.0)
[2020-03-23] MEDS ORDERED: cefTRIAXone SODIUM 1 GM VIAL ONE (09:14)
[2020-03-23] MEDS ORDERED: DEXTROSE 5%-WATER - 50 ML IVPB ONE (09:14)
[2020-03-23] MEDS: CEFTRIAXONE 1 GM in DEXTROSE 5%-WATER - 50 ML IVPB SCH (09:27)
[2020-03-23] MEDS: ENOXAPARIN NA (PORCINE) 40 MG/0.4 ML DISP.SYRIN SQ SCH (09:27)
[2020-03-23] MEDS: POLYETHYLENE GLYCOL 3350 119 GM BTL PO SCH (09:28)
[2020-03-23 09:54] LABS: ANISOCYTOSIS 3+; MACROCYTOSIS 0; PLATELET ESTIMATE NORMAL; TEAR DROP CELLS 1+
[2020-03-23] MEDS: AZITHROMYCIN IVPB 500 MG/250 ML BAG IVPB SCH (10:51)
[2020-03-23] MEDS: LACTATED RINGERS SOLUTION 1,000 ML/1,000 ML INFUS.BAG IV SCH (12:29)
[2020-03-23] MEDS ORDERED: BUDESONIDE/FORMETEROL FUMARATE 80/4.5 mcg INHALER IH SCH (12:45)
[2020-03-23 13:54] VITALS: BP 152/85; PULSE 78; TEMP 98.5
== END 2020-03-23 16:45 | disposition home or self-care (01) | DRG 684 ==
LOC: JER 16:57 → JERBED 22:19 → INTOOBSV 22:19 → OBSVTOIN 03-20 02:36 → J4S 03-20 20:16
PROVIDERS: ADMIT Hospitalist; ATTEND Internal Medicine
DX: N17.9 Acute kidney failure, unspecified (principal); E78.00 Pure hypercholesterolemia, unspecified; Z85.6 Personal history of leukemia; I12.9 Hypertensive chronic kidney disease with stage 1 through stage 4 chronic kidney disease, or unspecified chronic kidney disease; E11.22 Type 2 diabetes mellitus with diabetic chronic kidney disease; N18.9 Chronic kidney disease, unspecified; E11.65 Type 2 diabetes mellitus with hyperglycemia; D64.9 Anemia, unspecified; D72.829 Elevated white blood cell count, unspecified; N28.1 Cyst of kidney, acquired; Z20.822 Contact with and (suspected) exposure to COVID-19
CPT/HCPCS: 36415; 71045-TC-FY; 76775-TC; 80053; 81003; 82248; 82436; 82550; 82553; 82565; 82607; 82728; 82747; 82803; 82962; 83036; 83540; 83550; 83605; 83615; 83735; 83880; 84100; 84133; 84300; 84439; 84443; 84484; 85014; 85025; 85379; 85610; 85730; 86140; 86769; 87040; 87086; 87804; 88300-TC; 93005; 93010; 99285-25; C9803; G0378; J1644; U0003

== ENCOUNTER 2020-04-03 13:43 | Emergency (ER) | payer OTHER ==
[2020-04-03 13:59] VITALS: BP 153/93; PULSE 104; TEMP 99.1; BMI 31.8
[2020-04-03] MEDS ORDERED: diphenhydrAMINE HCL 25 MG CAPSULE (FP) PO ONE ×2 (14:41→14:45)
== END 2020-04-03 15:09 | disposition home or self-care (01) ==
LOC: FER 13:43
DX: R21 Rash and other nonspecific skin eruption (principal)
CPT/HCPCS: 99283-25

== ENCOUNTER 2020-04-13 18:55 | Emergency (ER) | payer OTHER ==
[2020-04-13 19:05] VITALS: TEMP 98.1; BMI 31.2
[2020-04-13] MEDS ORDERED: SODIUM CHLORIDE 0.9% 500 ML INFUS.BAG IV ONE (21:12)
[2020-04-13] MEDS ORDERED: KETOROLAC TROMETHAMINE 30 MG/1 ML VIAL IVPUSH ONE (21:12)
[2020-04-13] MEDS ORDERED: METOCLOPRAMIDE HCL INJECTION 10 MG/2 ML VIAL IVPUSH ONE (21:12)
[2020-04-13] MEDS ORDERED: ACETAMINOPHEN 1000 MG/100 ML VIAL (NON FORMULARY) IVPB ONE (21:18)
[2020-04-13] MEDS ORDERED: KETOROLAC TROMETHAMINE 30 MG/1 ML VIAL ONE (21:22)
[2020-04-13] MEDS ORDERED: METOCLOPRAMIDE HCL INJECTION 10 MG/2 ML VIAL ONE (21:22)
[2020-04-13] MEDS ORDERED: ACETAMINOPHEN INJECTION 100 ML IVPB ONE (21:54)
[2020-04-13] MEDS ORDERED: DEXAMETHASONE SOD PHOSPHATE 20 MG/5 ML VIAL IVPB STA (23:26)
[2020-04-13] MEDS ORDERED: DEXAMETHASONE SOD PHOSPHATE 10 MG/1 ML VIAL ONE (23:29)
[2020-04-13] MEDS ORDERED: VALSARTAN 40 MG TABLET PO ONE (23:48)
[2020-04-14] MEDS ORDERED: VALSARTAN 80 MG TABLET ONE (00:05)
[2020-04-14 00:33] LABS: BASO % 1.2 % (0-2.0); EOS % 2.4 % (0-4.5); HEMATOCRIT 25.6 % (35.4-49); HEMOGLOBIN 8.5 GM/dL (11.7-16.9); LYMPH % 12.2 % (8-40); MCH 27.9 pg (25.7-33.7); MCHC 33.2 g/dl (32.0-35.9); MEAN CELL VOLUME 84.1 fl (80-96); MEAN PLT VOLUME 10.6 fl (7.5-11.1); MONO % 7.3 % (3.8-10.2); NEUT % 76.9 % (42.8-82.8); PLATELET COUNT 82 K/MM3 (134-434); RBC 3.05 M/mm3 (4.00-5.60); RDW 19.6 % (11.9-15.9); WHITE BLOOD COUNT 10.8 K/mm3 (4.0-10.0)
[2020-04-14 00:46] LABS: POTASSIUM 4.7 mmol/L (3.5-5.1)
[2020-04-14 00:48] LABS: CALCIUM 8.2 mg/dL (8.5-10.1)
[2020-04-14 00:49] LABS: ALBUMIN 2.7 g/dl (3.4-5.0); BLOOD UREA NITROGEN 18.7 mg/dL (7-18)
[2020-04-14 00:52] LABS: CREATININE 1.6 mg/dL (0.55-1.3)
[2020-04-14 00:54] LABS: BILIRUBIN,TOTAL 0.4 mg/dL (0.2-1); TOT PROT 5.8 g/dl (6.4-8.2)
[2020-04-14 01:59] LABS: ANISOCYTOSIS 2+; MACROCYTOSIS 2+; PLATELET ESTIMATE DECREASED
[2020-04-14 02:18] VITALS: BP 172/80; PULSE 78
== END 2020-04-14 02:17 | disposition home or self-care (01) ==
LOC: JERFT 18:55 → JER 18:55
PROC: 3E0333Z Introduction of Anti-inflammatory into Peripheral Vein, Percutaneous Approach (ICD-10-PCS; principal; 2020-04-13)
PROC: 3E033GC Introduction of Other Therapeutic Substance into Peripheral Vein, Percutaneous Approach (ICD-10-PCS; 2020-04-13)
PROC: 3E033GC Introduction of Other Therapeutic Substance into Peripheral Vein, Percutaneous Approach (ICD-10-PCS; 2020-04-13)
PROC: 3E0333Z Introduction of Anti-inflammatory into Peripheral Vein, Percutaneous Approach (ICD-10-PCS; 2020-04-13)
PROC: 3E033GC Introduction of Other Therapeutic Substance into Peripheral Vein, Percutaneous Approach (ICD-10-PCS; 2020-04-13)
DX: R51.9 Headache, unspecified (principal)
CPT/HCPCS: 36415; 70450-TC; 80053; 85025; 99284-25; J0131

== ENCOUNTER 2022-03-10 15:12 | Observation (INO) | payer OTHER ==
[2022-03-10 15:32] VITALS: BMI 31.2
[2022-03-10 19:09] LABS: BASO % 3.5 % (0-2.0); EOS % 0.6 % (0-4.5); HEMATOCRIT 29.8 % (35.4-49); HEMOGLOBIN 9.9 GM/dL (11.7-16.9); LYMPH % 4.9 % (8-40); MCH 26.6 pg (25.7-33.7); MCHC 33.1 g/dl (32.0-35.9); MEAN CELL VOLUME 80.4 fl (80-96); MEAN PLT VOLUME 10.5 fl (7.5-11.1); MONO % 8.9 % (3.8-10.2); NEUT % 82.1 % (42.8-82.8); PLATELET COUNT 131 10^3/uL (134-434); RDW 16.9 % (11.9-15.9)
[2022-03-10 19:12] LABS: WHITE BLOOD COUNT 42.2 K/mm3 (4.0-10.0)
[2022-03-10 19:30] LABS: CALCIUM 8.3 mg/dL (8.5-10.1)
[2022-03-10 19:31] LABS: ALBUMIN 3.1 g/dl (3.4-5.0); BLOOD UREA NITROGEN 48.5 mg/dL (7-18)
[2022-03-10 19:34] LABS: CREATININE 6.3 mg/dL (0.55-1.3)
[2022-03-10 19:35] LABS: BILIRUBIN,TOTAL 0.3 mg/dL (0.2-1); TOT PROT 6.4 g/dl (6.4-8.2)
[2022-03-10 21:10] LABS: ANISOCYTOSIS 2+; MACROCYTOSIS 0; OVALOCYTE 1+; TEAR DROP CELLS 1+
[2022-03-10] MEDS ORDERED: SODIUM CHLORIDE 1,000 ML IV SCH (23:45)
[2022-03-11] MEDS: HEPARIN NA (PORCINE) 5,000 UNITS/ML 1ML VIAL SQ SCH ×4 (02:15→21:58)
[2022-03-11 10:03] LABS: HEMATOCRIT 29.8 % (35.4-49); HEMOGLOBIN 9.4 GM/dL (11.7-16.9); MCH 25.5 pg (25.7-33.7); MCHC 31.6 g/dl (32.0-35.9); MEAN CELL VOLUME 80.8 fl (80-96); MEAN PLT VOLUME 11.1 fl (7.5-11.1); PLATELET COUNT 141 10^3/uL (134-434); RBC 3.69 M/mm3 (4.00-5.60); RDW 16.8 % (11.9-15.9)
[2022-03-11 10:14] LABS: CALCIUM 8.3 mg/dL (8.5-10.1)
[2022-03-11 10:15] LABS: BLOOD UREA NITROGEN 52.5 mg/dL (7-18)
[2022-03-11 10:18] LABS: CREATININE 6.4 mg/dL (0.55-1.3); PHOSPHOROUS 4.6 mg/dL (2.5-4.9)
[2022-03-11 10:19] LABS: BILIRUBIN,TOTAL 0.5 mg/dL (0.2-1)
[2022-03-11 10:21] LABS: TOT PROT 6.1 g/dl (6.4-8.2)
[2022-03-11] MEDS: INSULIN SLIDING SCALE (NOVOLOG) 1 VIAL SQ SCH ×4 (10:22→21:58)
[2022-03-11 10:29] LABS: WHITE BLOOD COUNT 40.8 K/mm3 (4.0-10.0)
[2022-03-11 11:53] LABS: ANISOCYTOSIS 0; MACROCYTOSIS 0; OVALOCYTE 1+
[2022-03-11] MEDS ORDERED: SODIUM ZIRCONIUM CYCLOSILICATE (LOKELMA) 5 GM PACKET PO SCH (16:30)
[2022-03-11] MEDS: INSULIN (LEVEMIR) 100 UNITS/ML UNITS SQ SCH (21:57)
[2022-03-11 23:31] VITALS: RESP 18
[2022-03-11 23:32] LABS: EPI CELLS 8 /uL (0-25.1); HYALINE CASTS 0 /uL (0-3.1); PH,URINE 6.5 (5.0-8.0); URINE APPEARANCE CLEAR; URINE BACTERIA 6 /uL (0-1359); URINE BILIRUBIN NEGATIVE (NEGATIVE); URINE COLOR YELLOW; URINE GLUCOSE (UA) 1+ (NEGATIVE); URINE KETONE NEGATIVE (NEGATIVE); URINE LEUK ESTERASE NEGATIVE (NEGATIVE); URINE NITRITE NEGATIVE (NEGATIVE); URINE PROTEIN 3+ (NEGATIVE); URINE RBC 23 /uL (0-23.9); URINE UROBILINOGEN 0.2 mg/dL (0.2-1.0); URINE WBC 53 /uL (0-25.8)
[2022-03-12] MEDS: INSULIN SLIDING SCALE (NOVOLOG) 1 VIAL SQ SCH ×4 (06:25→21:08)
[2022-03-12] MEDS: HEPARIN NA (PORCINE) 5,000 UNITS/ML 1ML VIAL SQ SCH ×3 (06:30→21:07)
[2022-03-12] MEDS ORDERED: amLODIPine BESYLATE 10 MG TABLET (FP) PO SCH (10:00)
[2022-03-12] MEDS ORDERED: NIFEdipine E.R 60 MG TABLET PO SCH (10:00)
[2022-03-12] MEDS: INSULIN (LEVEMIR) 100 UNITS/ML UNITS SQ SCH ×2 (10:07→21:07)
[2022-03-12] MEDS ORDERED: amLODIPine BESYLATE 5 MG TABLET (FP) PO SCH (10:30)
[2022-03-12 11:26] LABS: HEMATOCRIT 28.4 % (35.4-49); HEMOGLOBIN 9.1 GM/dL (11.7-16.9); MCH 26.2 pg (25.7-33.7); MCHC 32.2 g/dl (32.0-35.9); MEAN CELL VOLUME 81.6 fl (80-96); MEAN PLT VOLUME 10.4 fl (7.5-11.1); PLATELET COUNT 131 10^3/uL (134-434); RBC 3.48 M/mm3 (4.00-5.60); RDW 16.9 % (11.9-15.9)
[2022-03-12 11:39] LABS: WHITE BLOOD COUNT 40.5 K/mm3 (4.0-10.0)
[2022-03-12 11:50] LABS: CALCIUM 8.2 mg/dL (8.5-10.1)
[2022-03-12 11:51] LABS: ALBUMIN 2.9 g/dl (3.4-5.0); BLOOD UREA NITROGEN 53.6 mg/dL (7-18)
[2022-03-12 11:54] LABS: CREATININE 6.5 mg/dL (0.55-1.3)
[2022-03-12 11:56] LABS: BILIRUBIN,TOTAL 0.3 mg/dL (0.2-1); TOT PROT 5.8 g/dl (6.4-8.2)
[2022-03-12] MEDS: hydrALAZINE HCL 50 MG TABLET (FP) PO SCH ×2 (13:23→21:07)
[2022-03-12] MEDS ORDERED: hydrALAZINE HCL 50 MG TABLET (FP) PO SCH (14:00)
[2022-03-12] MEDS: SODIUM ZIRCONIUM CYCLOSILICATE (LOKELMA) 5 GM PACKET PO SCH (17:49)
[2022-03-12] MEDS ORDERED: ATORVASTATIN CA 40 MG TABLET (FP) PO SCH (22:00)
[2022-03-12] MEDS ORDERED: NILOTINIB HCL 200 MG PO SCH (22:00)
[2022-03-13] MEDS: INSULIN SLIDING SCALE (NOVOLOG) 1 VIAL SQ SCH ×2 (06:17→11:17)
[2022-03-13] MEDS: HEPARIN NA (PORCINE) 5,000 UNITS/ML 1ML VIAL SQ SCH ×2 (06:18→15:30)
[2022-03-13] MEDS: hydrALAZINE HCL 50 MG TABLET (FP) PO SCH ×2 (06:18→15:05)
[2022-03-13] MEDS ORDERED: amLODIPine BESYLATE 10 MG TABLET (FP) PO SCH (07:47)
[2022-03-13] MEDS: INSULIN (LEVEMIR) 100 UNITS/ML UNITS SQ SCH (08:27)
[2022-03-13 11:43] LABS: HEMATOCRIT 27.6 % (35.4-49); HEMOGLOBIN 9.2 GM/dL (11.7-16.9); MCH 26.6 pg (25.7-33.7); MCHC 33.2 g/dl (32.0-35.9); MEAN CELL VOLUME 80.2 fl (80-96); MEAN PLT VOLUME 10.3 fl (7.5-11.1); PLATELET COUNT 132 10^3/uL (134-434); RBC 3.45 M/mm3 (4.00-5.60)
[2022-03-13 11:44] LABS: WHITE BLOOD COUNT 45.1 K/mm3 (4.0-10.0)
[2022-03-13 12:01] LABS: ALBUMIN 2.8 g/dl (3.4-5.0); CALCIUM 8.1 mg/dL (8.5-10.1)
[2022-03-13 12:02] LABS: BLOOD UREA NITROGEN 56.7 mg/dL (7-18)
[2022-03-13 12:06] LABS: BILIRUBIN,TOTAL 0.3 mg/dL (0.2-1); TOT PROT 5.8 g/dl (6.4-8.2)
[2022-03-13] MEDS: SODIUM ZIRCONIUM CYCLOSILICATE (LOKELMA) 5 GM PACKET PO SCH (12:07)
[2022-03-13 13:58] LABS: POTASSIUM PLASMA 4.6 mmol/L (3.5-5.1)
[2022-03-13 15:54] VITALS: BP 155/83; PULSE 70; TEMP 97
[2022-03-18 20:12] LABS: ANTIGLOMERULAR BASEMENT MEN.AB <0.2 units (0.0-0.9); ATYPICAL pANCA <1:20 titer (Neg:<1:20); C-ANCA <1:20 titer (Neg:<1:20)
== END 2022-03-13 16:24 | disposition home or self-care (01) ==
LOC: JER 15:12 → JERBED 20:17 → J5S 22:54
PROVIDERS: ADMIT Internal Medicine; ATTEND Internal Medicine
PROC: 3E013VG Introduction of Insulin into Subcutaneous Tissue, Percutaneous Approach (ICD-10-PCS; principal; 2022-03-10)
PROC: 3E0337Z Introduction of Electrolytic and Water Balance Substance into Peripheral Vein, Percutaneous Approach (ICD-10-PCS; 2022-03-10)
DX: E11.22 Type 2 diabetes mellitus with diabetic chronic kidney disease (principal); I12.9 Hypertensive chronic kidney disease with stage 1 through stage 4 chronic kidney disease, or unspecified chronic kidney disease; N18.9 Chronic kidney disease, unspecified; C92.10 Chronic myeloid leukemia, BCR/ABL-positive, not having achieved remission; Z79.01 Long term (current) use of anticoagulants; E66.8 Other obesity; Z68.31 Body mass index [BMI] 31.0-31.9, adult; E87.5 Hyperkalemia
CPT/HCPCS: 0241U-QW; 36415; 71045-TC-FY; 76775-TC; 80053; 81003; 82136; 82436; 82550; 82570; 82607; 82728; 82747; 82962; 83036; 83516; 83520; 83540; 83550; 83735; 83918; 84100; 84105; 84132; 84133; 84155; 84156; 84165; 84300; 85014; 85025; 85027; 85045; 86038; 86160; 86225; 86256; 87086; 93005; 93010; 99285-25; C9803-CS; G0378; J1644; U0003; U0005

== ENCOUNTER 2023-06-04 09:06 | Emergency (ER) | payer OTHER ==
[2023-06-04 09:23] VITALS: RESP 18; TEMP 98.1; BMI 29.5
[2023-06-04] MEDS ORDERED: MAG HYDROX/AL HYDROX/SIMETH 30 ML UNIT-DOSE CUP ONE (11:14)
[2023-06-04] MEDS ORDERED: ACETAMINOPHEN 325 MG TABLET (FP) ONE (11:14)
[2023-06-04] MEDS ORDERED: FAMOTIDINE 20 MG/50 ML IVPB 20 MG/50 ML MG IVPB ONE (11:14)
[2023-06-04 11:17] LABS: HEMATOCRIT 39.6 % (35.4-49); HEMOGLOBIN 12.8 GM/dL (11.7-16.9); MCH 26.8 pg (25.7-33.7); MCHC 32.2 g/dl (32.0-35.9); MEAN CELL VOLUME 83.2 fl (80-96); MEAN PLT VOLUME 10.2 fl (7.5-11.1); PLATELET COUNT 239 10^3/uL (134-434); RBC 4.76 M/mm3 (4.00-5.60); RDW 18.6 % (11.9-15.9)
[2023-06-04 11:23] LABS: INR 1.12 (0.83-1.09); PROTHROMBIN TIME (PATIENT) 12.6 SEC (9.7-13.0)
[2023-06-04] MEDS: MAG HYDROX/AL HYDROX/SIMETH 30 ML UNIT-DOSE CUP PO ONE (11:24)
[2023-06-04] MEDS: SODIUM CHLORIDE 0.9% 500 ML INFUS.BAG IV ONE (11:24)
[2023-06-04] MEDS: FAMOTIDINE 20 MG/50 ML IVPB 20 MG/50 ML MG IVPB ONE (11:24)
[2023-06-04] MEDS: ACETAMINOPHEN 325 MG TABLET (FP) PO ONE (11:24)
[2023-06-04 11:26] LABS: ACTIVATED PTT 31.2 SECONDS (25.2-36.5)
[2023-06-04 11:42] LABS: ANISOCYTOSIS 0; HELMET CELLS 0; HOWELL-JOLLY BODIES 0; MACROCYTOSIS 0; OVALOCYTE 0; ROULEAU 0; SICKELED CELLS 0; TARGET CELLS 0; TEAR DROP CELLS 0; TOXIC GRANULATION 0
[2023-06-04 11:51] LABS: POTASSIUM 5.3 mmol/L (3.5-5.1)
[2023-06-04 11:54] LABS: ALBUMIN 3.1 g/dl (3.4-5.0); BLOOD UREA NITROGEN 41.8 mg/dL (7-18); CALCIUM 8.5 mg/dL (8.5-10.1)
[2023-06-04 11:57] LABS: CREATININE 6.3 mg/dL (0.55-1.3); PHOSPHOROUS 4.3 mg/dL (2.5-4.9)
[2023-06-04 11:58] LABS: BILIRUBIN,TOTAL 0.7 mg/dL (0.2-1); TOT PROT 6.9 g/dl (6.4-8.2)
[2023-06-04 13:22] VITALS: BP 112/65; PULSE 78
== END 2023-06-04 13:50 | disposition home or self-care (01) ==
LOC: JER 09:06
PROC: 3E033GC Introduction of Other Therapeutic Substance into Peripheral Vein, Percutaneous Approach (ICD-10-PCS; principal; 2023-06-04)
DX: R11.2 Nausea with vomiting, unspecified (principal); R10.13 Epigastric pain; R53.1 Weakness; K52.9 Noninfective gastroenteritis and colitis, unspecified; R42 Dizziness and giddiness; Z20.822 Contact with and (suspected) exposure to COVID-19
CPT/HCPCS: 0241U-QW; 36415; 71045-TC-FY; 80053; 83690; 83735; 84100; 84484; 85025; 85610; 85730; 93005; 93010; 99285-25

== ENCOUNTER 2023-08-31 10:31 | Inpatient (IN) | payer OTHER ==
[2023-08-31 11:53] LABS: HEMATOCRIT 21.7 % (35.4-49); HEMOGLOBIN 7.1 GM/dL (11.7-16.9); MCH 28.1 pg (25.7-33.7); MCHC 32.7 g/dl (32.0-35.9); MEAN PLT VOLUME 9.8 fl (7.5-11.1); PLATELET COUNT 123 10^3/uL (134-434); RBC 2.52 M/mm3 (4.00-5.60); RDW 19.1 % (11.9-15.9); WHITE BLOOD COUNT 9.3 K/mm3 (4.0-10.0)
[2023-08-31 12:00] LABS: INR 1.13 (0.83-1.09); PROTHROMBIN TIME (PATIENT) 12.9 SEC (9.7-13.0)
[2023-08-31 12:15] LABS: CHLORIDE 101 mmol/L (98-107); POTASSIUM 5.6 mmol/L (3.5-5.1); SODIUM 136 mmol/L (136-145)
[2023-08-31 12:18] LABS: ALBUMIN 2.8 g/dl (3.4-5.0); ANION GAP 10 mmol/L (4-13); BLOOD UREA NITROGEN 41.8 mg/dL (7-18); CALCIUM 7.9 mg/dL (8.5-10.1); CO2 24 mmol/L (21-32); GLUCOSE,RANDOM 347 mg/dL (74-106); MAGNESIUM 2.1 mg/dL (1.8-2.4)
[2023-08-31 12:21] LABS: SGOT/AST 13 U/L (15-37); SGPT/ALT 11 U/L (13-61)
[2023-08-31 12:22] LABS: BILIRUBIN,TOTAL 0.4 mg/dL (0.2-1); TOT PROT 6.4 g/dl (6.4-8.2)
[2023-08-31 12:24] LABS: ALK PHOS 118 U/L (45-117)
[2023-08-31 12:37] LABS: CREATININE 8.7 mg/dL (0.55-1.3); PLATELET ESTIMATE SLT DECREASE
[2023-08-31] MEDS ORDERED: INSULIN REGULAR HUMAN 100 UNITS/ML *VIAL ONE (13:29)
[2023-08-31] MEDS: INSULIN REGULAR HUMAN 100 UNITS/ML *VIAL SQ ONE (13:35)
[2023-08-31] MEDS ORDERED: SODIUM CHLORIDE 250 ML IV PRN (13:43)
[2023-08-31] MEDS: EPOETIN ALFA-EPBX 20,000 UNIT/ML VIAL SQ ONE (21:15)
[2023-08-31] MEDS ORDERED: ATORVASTATIN CA 80 MG TABLET (FP) ONE (22:11)
[2023-08-31] MEDS ORDERED: ASPIRIN 81 MG CHEWABLE TABLETS ONE (22:12)
[2023-08-31] MEDS ORDERED: SEVELAMER CARBONATE 800 MG TAB (FP) ONE (22:12)
[2023-08-31] MEDS: ASPIRIN COATED 81 MG TABLET.EC PO SCH (22:19)
[2023-08-31] MEDS: SEVELAMER CARBONATE 800 MG TAB (FP) PO SCH (22:19)
[2023-08-31] MEDS: ATORVASTATIN CA 80 MG TABLET (FP) PO SCH (22:19)
[2023-08-31 23:50] VITALS: BMI 29.7
[2023-09-01 07:11] LABS: HEMATOCRIT 27.9 % (35.4-49); HEMOGLOBIN 9.2 GM/dL (11.7-16.9); MCH 28.2 pg (25.7-33.7); MCHC 33.1 g/dl (32.0-35.9); MEAN CELL VOLUME 85.5 fl (80-96); MEAN PLT VOLUME 9.8 fl (7.5-11.1); PLATELET COUNT 140 10^3/uL (134-434); RBC 3.27 M/mm3 (4.00-5.60); RDW 18.6 % (11.9-15.9); WHITE BLOOD COUNT 9.8 K/mm3 (4.0-10.0)
[2023-09-01 07:30] LABS: POTASSIUM 4.1 mmol/L (3.5-5.1)
[2023-09-01 07:32] LABS: CALCIUM 8.3 mg/dL (8.5-10.1)
[2023-09-01 07:33] LABS: ALBUMIN 2.8 g/dl (3.4-5.0); MAGNESIUM 1.9 mg/dL (1.8-2.4)
[2023-09-01 07:36] LABS: CREATININE 6.1 mg/dL (0.55-1.3); PHOSPHOROUS 3.6 mg/dL (2.5-4.9)
[2023-09-01 07:37] LABS: BILIRUBIN,TOTAL 0.5 mg/dL (0.2-1); TOT PROT 6.3 g/dl (6.4-8.2)
[2023-09-01] MEDS: SEVELAMER CARBONATE 800 MG TAB (FP) PO SCH (07:47)
[2023-09-01] MEDS: metoPROLOL SUCCINATE 25 MG TAB.SR.24H (FP) PO SCH (09:04)
[2023-09-01 09:46] LABS: EPI CELLS 6 /uL (0-25.1); HYALINE CASTS 1 /uL (0-3.1); PH,URINE >= 9.0 (5.0-8.0); URINE APPEARANCE CLEAR; URINE BACTERIA 13 /uL (0-1359); URINE BILIRUBIN NEGATIVE (NEGATIVE); URINE COLOR YELLOW; URINE GLUCOSE (UA) TRACE (NEGATIVE); URINE KETONE NEGATIVE (NEGATIVE); URINE LEUK ESTERASE TRACE (NEGATIVE); URINE NITRITE NEGATIVE (NEGATIVE); URINE PROTEIN 3+ (NEGATIVE); URINE RBC 44 /uL (0-23.9); URINE UROBILINOGEN 0.2 mg/dL (0.2-1.0); URINE WBC 98 /uL (0-25.8)
[2023-09-01 15:02] LABS: RETICULOCYTES 3.95 % (0.5-1.5)
[2023-09-01] MEDS ORDERED: amLODIPine BESYLATE 5 MG TABLET (FP) PO SCH (15:30)
[2023-09-01] MEDS ORDERED: SODIUM CHLORIDE 250 ML IV PRN (16:04)
[2023-09-01] MEDS: SACUBITRIL/VALSARTAN 49 MG-51 MG TABLET PO SCH (17:17)
[2023-09-02 10:17] LABS: EOS % 0.8 % (0-4.5); HEMATOCRIT 28.4 % (35.4-49); HEMOGLOBIN 9.5 GM/dL (11.7-16.9); LYMPH % 6.3 % (8-40); MCH 28.7 pg (25.7-33.7); MCHC 33.5 g/dl (32.0-35.9); MEAN CELL VOLUME 85.7 fl (80-96); MEAN PLT VOLUME 9.5 fl (7.5-11.1); MONO % 8.3 % (3.8-10.2); NEUT % 81.6 % (42.8-82.8); PLATELET COUNT 124 10^3/uL (134-434); RBC 3.32 M/mm3 (4.00-5.60); RDW 18.8 % (11.9-15.9); WHITE BLOOD COUNT 8.3 K/mm3 (4.0-10.0)
[2023-09-02] MEDS: EPOETIN ALFA-EPBX 20,000 UNIT/ML VIAL IVPUSH ONE (10:19)
[2023-09-02 10:34] LABS: POTASSIUM 4.2 mmol/L (3.5-5.1)
[2023-09-02 10:36] LABS: BLOOD UREA NITROGEN 39.9 mg/dL (7-18); CALCIUM 8.3 mg/dL (8.5-10.1); MAGNESIUM 1.9 mg/dL (1.8-2.4)
[2023-09-02 10:37] LABS: ALBUMIN 2.8 g/dl (3.4-5.0)
[2023-09-02 10:39] LABS: CREATININE 7.3 mg/dL (0.55-1.3); PHOSPHOROUS 3.9 mg/dL (2.5-4.9)
[2023-09-02 10:41] LABS: BILIRUBIN,TOTAL 0.5 mg/dL (0.2-1); TOT PROT 6.2 g/dl (6.4-8.2)
[2023-09-02 13:36] VITALS: BP 156/94; PULSE 80; RESP 16; TEMP 98.4
== END 2023-09-02 15:01 | disposition home or self-care (01) | DRG 682 ==
LOC: JER 10:31 → JERBED 14:22 → J4W 09-01 01:18
PROVIDERS: ADMIT Internal Medicine; ATTEND Internal Medicine
PROC: 30233N1 Transfusion of Nonautologous Red Blood Cells into Peripheral Vein, Percutaneous Approach (ICD-10-PCS; principal; 2023-08-31)
PROC: 5A1D70Z Performance of Urinary Filtration, Intermittent, Less than 6 Hours Per Day (ICD-10-PCS; 2023-08-31)
DX: I12.0 Hypertensive chronic kidney disease with stage 5 chronic kidney disease or end stage renal disease (principal); N18.6 End stage renal disease; C92.10 Chronic myeloid leukemia, BCR/ABL-positive, not having achieved remission; I25.10 Atherosclerotic heart disease of native coronary artery without angina pectoris; I25.2 Old myocardial infarction; E11.22 Type 2 diabetes mellitus with diabetic chronic kidney disease; Z99.2 Dependence on renal dialysis; E11.65 Type 2 diabetes mellitus with hyperglycemia; Z95.1 Presence of aortocoronary bypass graft; I45.10 Unspecified right bundle-branch block; D63.1 Anemia in chronic kidney disease; E87.5 Hyperkalemia; N28.1 Cyst of kidney, acquired; R07.89 Other chest pain
CPT/HCPCS: 36415; 36430; 71045-TC-FY; 80053; 81003; 82010; 82272; 82728; 82962; 83036; 83540; 83550; 83735; 84100; 84466; 84484; 85025; 85027; 85045; 85610; 86704; 86705; 86803; 86850; 86900; 86901; 86922; 87340; 87517; 93005; 93010; 93306-TC; 99285-25; P9058

== ENCOUNTER 2023-11-19 10:33 | Inpatient (IN) | payer OTHER ==
[2023-11-19 13:02] LABS: BASO % 2.2 % (0-2.0); HEMATOCRIT 32.3 % (35.4-49); HEMOGLOBIN 10.7 GM/dL (11.7-16.9); LYMPH % 3.9 % (8-40); MEAN CELL VOLUME 81.8 fl (80-96); MEAN PLT VOLUME 10.3 fl (7.5-11.1); MONO % 17.1 % (3.8-10.2); NEUT % 76.8 % (42.8-82.8); PLATELET COUNT 146 10^3/uL (134-434); RBC 3.94 M/mm3 (4.00-5.60); RDW 15.2 % (11.9-15.9); WHITE BLOOD COUNT 7.4 K/mm3 (4.0-10.0)
[2023-11-19 13:10] LABS: INR 1.06 (0.83-1.09); PROTHROMBIN TIME (PATIENT) 12.2 SEC (9.7-13.0)
[2023-11-19 13:13] LABS: ACTIVATED PTT 25.5 SECONDS (25.2-36.5)
[2023-11-19 13:15] LABS: CHLORIDE 104 mmol/L (98-107); POTASSIUM 5.7 mmol/L (3.5-5.1); SODIUM 136 mmol/L (136-145)
[2023-11-19 13:19] LABS: CALCIUM 7.9 mg/dL (8.5-10.1)
[2023-11-19 13:20] LABS: ALBUMIN 2.9 g/dl (3.4-5.0); ANION GAP 10 mmol/L (4-13); BLOOD UREA NITROGEN 87.8 mg/dL (7-18); CO2 23 mmol/L (21-32); GLUCOSE,RANDOM 156 mg/dL (74-106); MAGNESIUM 2.1 mg/dL (1.8-2.4)
[2023-11-19 13:23] LABS: PHOSPHOROUS 4.7 mg/dL (2.5-4.9); SGOT/AST 13 U/L (15-37); SGPT/ALT 15 U/L (13-61)
[2023-11-19 13:24] LABS: BILIRUBIN,TOTAL 0.5 mg/dL (0.2-1)
[2023-11-19 13:25] LABS: TOT PROT 6.4 g/dl (6.4-8.2)
[2023-11-19 13:26] LABS: ALK PHOS 110 U/L (45-117)
[2023-11-19 13:48] LABS: CREATININE 13.1 mg/dL (0.55-1.3)
[2023-11-19] MEDS: ACETAMINOPHEN 325 MG TABLET (FP) PO ONE (13:50)
[2023-11-19] MEDS ORDERED: ACETAMINOPHEN INJECTION 100 ML ONE (13:50)
[2023-11-19] MEDS: ACETAMINOPHEN 1000 MG/100 ML BAG IVPB ONE (13:55)
[2023-11-19] MEDS ORDERED: ACETAMINOPHEN 325 MG TABLET (FP) PO PRN (16:10)
[2023-11-19] MEDS ORDERED: SODIUM CHLORIDE 250 ML IV PRN (18:42)
[2023-11-19] MEDS: PIPERACILLIN/TAZOB 4.5 GM 4.5 GM in DEXTROSE 5%-WATER 100 ML IVPB ONE (19:54)
[2023-11-19] MEDS: VANCOMYCIN 1,000 MG in DEXTROSE 5%-WATER - 250 ML IVPB ONE (20:20)
[2023-11-19] MEDS: SEVELAMER CARBONATE 800 MG TAB (FP) PO SCH (20:22)
[2023-11-19] MEDS: SODIUM ZIRCONIUM CYCLOSILICATE (LOKELMA) 5 GM PACKET PO SCH ×2 (20:22→20:30)
[2023-11-19] MEDS: CLINDAMYCIN 600MG PREMIX IVPB 600 MG/50 ML BAG IVPB SCH (20:23)
[2023-11-19] MEDS: SACUBITRIL/VALSARTAN 49 MG-51 MG TABLET PO SCH (21:06)
[2023-11-19] MEDS: HEPARIN NA (PORCINE) 5,000 UNITS/ML 1ML VIAL SQ SCH (21:06)
[2023-11-19] MEDS: PIPERACILLIN/TAZOB 2.25 GM 2.25 GM in DEXTROSE 5%-WATER - 50 ML IVPB SCH (21:06)
[2023-11-19] MEDS: ATORVASTATIN CA 80 MG TABLET (FP) PO SCH (21:06)
[2023-11-19] MEDS: VANCOMYCIN/WATER FOR INJ (PEG) 1,000 MG/200 ML BAG IVPB ONE (21:55)
[2023-11-20] MEDS: TORSEMIDE 20 MG TABLET (FP) PO SCH (05:23)
[2023-11-20] MEDS: metoPROLOL SUCCINATE 25 MG TAB.SR.24H (FP) PO SCH (09:21)
[2023-11-20] MEDS: ASPIRIN COATED 81 MG TABLET.EC PO SCH (09:22)
[2023-11-20 09:52] LABS: HEMATOCRIT 29.7 % (35.4-49); HEMOGLOBIN 9.9 GM/dL (11.7-16.9); MCH 27.2 pg (25.7-33.7); MCHC 33.3 g/dl (32.0-35.9); MEAN CELL VOLUME 81.7 fl (80-96); MEAN PLT VOLUME 10.6 fl (7.5-11.1); PLATELET COUNT 137 10^3/uL (134-434); RBC 3.64 M/mm3 (4.00-5.60); RDW 15.1 % (11.9-15.9); WHITE BLOOD COUNT 7.7 K/mm3 (4.0-10.0)
[2023-11-20 10:19] LABS: CHLORIDE 100 mmol/L (98-107); POTASSIUM 4.3 mmol/L (3.5-5.1); SODIUM 136 mmol/L (136-145)
[2023-11-20 10:24] LABS: CALCIUM 7.2 mg/dL (8.5-10.1)
[2023-11-20 10:25] LABS: ALBUMIN 2.5 g/dl (3.4-5.0); ANION GAP 10 mmol/L (4-13); CO2 26 mmol/L (21-32); GLUCOSE,RANDOM 177 mg/dL (74-106)
[2023-11-20 10:26] LABS: BLOOD UREA NITROGEN 58.5 mg/dL (7-18)
[2023-11-20 10:28] LABS: BILIRUBIN,TOTAL 0.4 mg/dL (0.2-1); SGOT/AST 9 U/L (15-37); SGPT/ALT 12 U/L (13-61)
[2023-11-20 10:30] LABS: TOT PROT 5.8 g/dl (6.4-8.2)
[2023-11-20 10:31] LABS: ALK PHOS 75 U/L (45-117)
[2023-11-20 10:43] LABS: ANISOCYTOSIS 0; HELMET CELLS 0; HOWELL-JOLLY BODIES 0; MACROCYTOSIS 0; OVALOCYTE 0; ROULEAU 0; SICKELED CELLS 0; TARGET CELLS 0; TEAR DROP CELLS 0; TOXIC GRANULATION 0
[2023-11-20 15:25] LABS: EPI CELLS 28 /uL (0-25.1); HYALINE CASTS 2 /uL (0-3.1); URINE APPEARANCE CLOUDY; URINE BACTERIA 7 /uL (0-1359); URINE BILIRUBIN NEGATIVE (NEGATIVE); URINE COLOR YELLOW; URINE GLUCOSE (UA) NEGATIVE (NEGATIVE); URINE KETONE TRACE (NEGATIVE); URINE LEUK ESTERASE NEGATIVE (NEGATIVE); URINE NITRITE NEGATIVE (NEGATIVE); URINE PROTEIN 3+ (NEGATIVE); URINE UROBILINOGEN 0.2 mg/dL (0.2-1.0)
[2023-11-20 15:26] LABS: URINE RBC 26 /uL (0-23.9); URINE WBC 62 /uL (0-25.8)
[2023-11-20] MEDS: INSULIN ASPART SLIDING SCALE (NOVOLOG) 1 VIAL SQ SCH (17:20)
[2023-11-21 16:20] LABS: MCH 27.2 pg (25.7-33.7); MCHC 33.5 g/dl (32.0-35.9); MEAN CELL VOLUME 81.1 fl (80-96); PLATELET COUNT 135 10^3/uL (134-434); RBC 3.32 M/mm3 (4.00-5.60); RDW 14.9 % (11.9-15.9); WHITE BLOOD COUNT 7.7 K/mm3 (4.0-10.0)
[2023-11-21 16:36] LABS: CHLORIDE 102 mmol/L (98-107); POTASSIUM 4.2 mmol/L (3.5-5.1); SODIUM 138 mmol/L (136-145)
[2023-11-21 16:39] LABS: ALBUMIN 2.2 g/dl (3.4-5.0); ANION GAP 10 mmol/L (4-13); BLOOD UREA NITROGEN 69.1 mg/dL (7-18); CO2 26 mmol/L (21-32); GLUCOSE,RANDOM 160 mg/dL (74-106)
[2023-11-21 16:42] LABS: SGOT/AST 5 U/L (15-37)
[2023-11-21 16:43] LABS: BILIRUBIN,TOTAL 0.3 mg/dL (0.2-1); TOT PROT 5.5 g/dl (6.4-8.2)
[2023-11-21 16:45] LABS: ALK PHOS 71 U/L (45-117)
[2023-11-21 16:47] LABS: CREATININE 11.4 mg/dL (0.55-1.3)
[2023-11-21 16:50] LABS: SGPT/ALT 8 U/L (13-61)
[2023-11-21 19:11] LABS: ANISOCYTOSIS 3+; MACROCYTOSIS 0; OVALOCYTE 2+; TEAR DROP CELLS 1+
[2023-11-22 09:13] LABS: HEMATOCRIT 27.4 % (35.4-49); HEMOGLOBIN 9.5 GM/dL (11.7-16.9); MCH 27.9 pg (25.7-33.7); MCHC 34.5 g/dl (32.0-35.9); MEAN PLT VOLUME 10.1 fl (7.5-11.1); PLATELET COUNT 135 10^3/uL (134-434); RBC 3.39 M/mm3 (4.00-5.60); RDW 15.1 % (11.9-15.9); WHITE BLOOD COUNT 8.7 K/mm3 (4.0-10.0)
[2023-11-22] MEDS: HEPARIN NA (PORCINE) 5,000 UNITS/ML 1ML VIAL IVPUSH ONE (09:20)
[2023-11-22 09:48] LABS: CHLORIDE 102 mmol/L (98-107); POTASSIUM 4.4 mmol/L (3.5-5.1); SODIUM 139 mmol/L (136-145)
[2023-11-22 10:04] LABS: ALBUMIN 2.3 g/dl (3.4-5.0); ANION GAP 13 mmol/L (4-13); CO2 24 mmol/L (21-32); GLUCOSE,RANDOM 157 mg/dL (74-106); MAGNESIUM 1.9 mg/dL (1.8-2.4)
[2023-11-22 10:05] LABS: BLOOD UREA NITROGEN 74.2 mg/dL (7-18); CALCIUM 6.9 mg/dL (8.5-10.1)
[2023-11-22 10:07] LABS: SGPT/ALT 8 U/L (13-61)
[2023-11-22 10:08] LABS: BILIRUBIN,TOTAL 0.4 mg/dL (0.2-1); CREATININE 12.4 mg/dL (0.55-1.3); SGOT/AST < 3 U/L (15-37); TOT PROT 5.6 g/dl (6.4-8.2)
[2023-11-22 10:09] LABS: ALK PHOS 69 U/L (45-117)
[2023-11-22 10:14] LABS: ANISOCYTOSIS 3+; MACROCYTOSIS 0
[2023-11-22] MEDS ORDERED: SODIUM CHLORIDE 250 ML IV PRN ×2 (11:00→13:24)
[2023-11-22] MEDS: EPOETIN ALFA-EPBX 10,000 UNIT/ML VIAL IVPUSH ONE (11:17)
[2023-11-22 18:07] LABS: CHOLESTEROL 99 mg/dL (50-200); LDL CHOLESTEROL (ONLY SJRH) 52 mg/dL (5-100)
[2023-11-22 18:08] LABS: HDL CHOLESTEROL 26 mg/dL (40-60)
[2023-11-22 18:12] LABS: N-TERMINAL BNP 17536.3 pg/ml (5-125)
[2023-11-22] MEDS: CALCIUM CARBONATE 650 MG TABLET PO SCH (18:28)
[2023-11-23] MEDS: HEPARIN NA (PORCINE) 5,000 UNITS/ML 1ML VIAL IVPUSH ONE (09:30)
[2023-11-23] MEDS: HEPARIN NA (PORCINE) 5,000 UNITS/ML 1ML VIAL IVPUSH SCH (10:00)
[2023-11-23 11:51] LABS: HEMATOCRIT 26.3 % (35.4-49); HEMOGLOBIN 8.5 GM/dL (11.7-16.9); MCH 26.7 pg (25.7-33.7); MCHC 32.4 g/dl (32.0-35.9); MEAN CELL VOLUME 82.3 fl (80-96); MEAN PLT VOLUME 10.6 fl (7.5-11.1); PLATELET COUNT 141 10^3/uL (134-434); RBC 3.19 M/mm3 (4.00-5.60); RDW 15.1 % (11.9-15.9); WHITE BLOOD COUNT 8.9 K/mm3 (4.0-10.0)
[2023-11-23] MEDS: EPOETIN ALFA-EPBX 10,000 UNIT/ML VIAL SQ ONE (11:58)
[2023-11-23 12:11] LABS: CHLORIDE 100 mmol/L (98-107); POTASSIUM 3.5 mmol/L (3.5-5.1); SODIUM 137 mmol/L (136-145)
[2023-11-23 12:15] LABS: ALBUMIN 2.1 g/dl (3.4-5.0); ANION GAP 12 mmol/L (4-13); CO2 25 mmol/L (21-32); GLUCOSE,RANDOM 242 mg/dL (74-106); MAGNESIUM 1.8 mg/dL (1.8-2.4)
[2023-11-23 12:18] LABS: CALCIUM 6.8 mg/dL (8.5-10.1); SGOT/AST 3 U/L (15-37); SGPT/ALT 7 U/L (13-61)
[2023-11-23 12:19] LABS: CREATININE 9.8 mg/dL (0.55-1.3)
[2023-11-23 12:20] LABS: BILIRUBIN,TOTAL 0.4 mg/dL (0.2-1); TOT PROT 5.8 g/dl (6.4-8.2)
[2023-11-23 12:21] LABS: ALK PHOS 64 U/L (45-117)
[2023-11-23 12:31] LABS: ANISOCYTOSIS 2+; MACROCYTOSIS 0; OVALOCYTE 1+
[2023-11-23] MEDS: PIPERACILLIN/TAZOB 2.25 GM 2.25 GM/50 ML BAG IVPB SCH (15:37)
[2023-11-24 09:10] LABS: HEMATOCRIT 28.6 % (35.4-49); HEMOGLOBIN 9.4 GM/dL (11.7-16.9); MCHC 32.6 g/dl (32.0-35.9); MEAN CELL VOLUME 82.7 fl (80-96); MEAN PLT VOLUME 9.9 fl (7.5-11.1); PLATELET COUNT 151 10^3/uL (134-434); RBC 3.47 M/mm3 (4.00-5.60); RDW 14.9 % (11.9-15.9); WHITE BLOOD COUNT 9.6 K/mm3 (4.0-10.0)
[2023-11-24 09:24] LABS: CHLORIDE 101 mmol/L (98-107); POTASSIUM 3.8 mmol/L (3.5-5.1); SODIUM 140 mmol/L (136-145)
[2023-11-24 09:34] LABS: ALBUMIN 2.4 g/dl (3.4-5.0); ALK PHOS 68 U/L (45-117); BLOOD UREA NITROGEN 28.3 mg/dL (7-18); SGPT/ALT 7 U/L (13-61)
[2023-11-24 09:35] LABS: ANION GAP 9 mmol/L (4-13); CO2 30 mmol/L (21-32); GLUCOSE,RANDOM 152 mg/dL (74-106); MAGNESIUM 1.7 mg/dL (1.8-2.4); SGOT/AST 4 U/L (15-37)
[2023-11-24 09:36] LABS: BILIRUBIN,TOTAL 0.4 mg/dL (0.2-1); TOT PROT 5.9 g/dl (6.4-8.2)
[2023-11-24 09:38] LABS: CALCIUM 7.2 mg/dL (8.5-10.1); CREATININE 7.6 mg/dL (0.55-1.3)
[2023-11-24 10:06] LABS: ANISOCYTOSIS 3+; MACROCYTOSIS 0
[2023-11-24] MEDS: MAGNESIUM OXIDE 400 MG TABLET (FP) PO ONE (12:08)
[2023-11-24] MEDS ORDERED: SODIUM CHLORIDE 250 ML IV PRN (14:44)
[2023-11-24] MEDS: MAGNESIUM 1GM/D5W 100ML - 100 ML IVPB IVPB ONE (16:16)
[2023-11-25] MEDS ORDERED: LIDOCAINE HCL 2% (20ML MULTI-DOSE VIAL) ONE (07:21)
[2023-11-25] MEDS ORDERED: BUPIVACAINE HCL/PF 0.5% (5MG/ML) 10 ML VIAL ONE (07:21)
[2023-11-25] MEDS ORDERED: MIDAZOLAM HCL 2 MG/2 ML SINGLE DOSE VIAL ONE (07:22)
[2023-11-25] MEDS ORDERED: PROPOFOL 20 ML ONE (07:56)
[2023-11-25] MEDS ORDERED: LIDOCAINE HCL/PF 2% SDV 5ML VIAL ONE (08:02)
[2023-11-25] MEDS ORDERED: ONDANSETRON 4 MG/2 ML VIAL ONE (08:08)
[2023-11-25] MEDS: LIDOCAINE HCL 2% (50ML VIAL) INF ONE (08:10)
[2023-11-25] MEDS ORDERED: ONDANSETRON 4 MG/2 ML VIAL IVPUSH PRN (08:43)
[2023-11-25] MEDS ORDERED: ACETAMINOPHEN 325 MG TABLET (FP) PO PRN (08:50)
[2023-11-25] MEDS: NILOTINIB HCL 200 MG PO SCH (08:57)
[2023-11-25] MEDS ORDERED: NILOTINIB HCL 200 MG PO SCH (10:00)
[2023-11-25] MEDS: PIPERACILLIN/TAZOB 2.25 GM 2.25 GM/50 ML BAG IVPB SCH (10:05)
[2023-11-25] MEDS: SACUBITRIL/VALSARTAN 49 MG-51 MG TABLET PO SCH (10:44)
[2023-11-25] MEDS: metoPROLOL SUCCINATE 25 MG TAB.SR.24H (FP) PO SCH (10:44)
[2023-11-25] MEDS: CALCIUM CARBONATE 650 MG TABLET PO SCH (10:44)
[2023-11-25] MEDS: ASPIRIN COATED 81 MG TABLET.EC PO SCH (10:44)
[2023-11-25] MEDS: SEVELAMER CARBONATE 800 MG TAB (FP) PO SCH ×2 (10:50→12:42)
[2023-11-25] MEDS: MAGNESIUM OXIDE 400 MG TABLET (FP) PO ONE (10:51)
[2023-11-25] MEDS ORDERED: SEVELAMER CARBONATE 800 MG TAB (FP) PO SCH (12:00)
[2023-11-25] MEDS ORDERED: SILVER SULFADIAZINE 1% TOP CREAM 50 GM JAR TP SCH (12:30)
[2023-11-25] MEDS: INSULIN ASPART SLIDING SCALE (NOVOLOG) 1 VIAL SQ SCH (12:39)
[2023-11-25] MEDS: SODIUM CHLORIDE 1,000 ML IV SCH (12:39)
[2023-11-25] MEDS: HEPARIN NA (PORCINE) 5,000 UNITS/ML 1ML VIAL IVPUSH ONE (14:20)
[2023-11-25] MEDS ORDERED: SODIUM CHLORIDE 250 ML IV PRN (14:23)
[2023-11-25 14:34] VITALS: RESP 18
[2023-11-25 14:44] LABS: HEMATOCRIT 26.5 % (35.4-49); HEMOGLOBIN 8.9 GM/dL (11.7-16.9); MCH 27.3 pg (25.7-33.7); MCHC 33.5 g/dl (32.0-35.9); MEAN CELL VOLUME 81.5 fl (80-96); MEAN PLT VOLUME 10.6 fl (7.5-11.1); PLATELET COUNT 156 10^3/uL (134-434); RBC 3.25 M/mm3 (4.00-5.60); RDW 14.8 % (11.9-15.9); WHITE BLOOD COUNT 7.3 K/mm3 (4.0-10.0)
[2023-11-25] MEDS ORDERED: EPOETIN ALFA-EPBX 10,000 UNIT/ML VIAL IVPUSH ONE (14:44)
[2023-11-25] MEDS ORDERED: HEPARIN NA (PORCINE) 5,000 UNITS/ML 1ML VIAL IVPUSH ONE (14:44)
[2023-11-25] MEDS: EPOETIN ALFA-EPBX 10,000 UNIT/ML VIAL IVPUSH ONE (15:19)
[2023-11-25] MEDS: TORSEMIDE 20 MG TABLET (FP) PO SCH (17:59)
[2023-11-25] MEDS: HEPARIN NA (PORCINE) 5,000 UNITS/ML 1ML VIAL SQ SCH (21:49)
[2023-11-25] MEDS: ATORVASTATIN CA 80 MG TABLET (FP) PO SCH (21:50)
[2023-11-26 08:50] LABS: HEMATOCRIT 27.8 % (35.4-49); HEMOGLOBIN 9.2 GM/dL (11.7-16.9); MCH 27.4 pg (25.7-33.7); MCHC 33.1 g/dl (32.0-35.9); MEAN CELL VOLUME 82.7 fl (80-96); MEAN PLT VOLUME 10.4 fl (7.5-11.1); PLATELET COUNT 158 10^3/uL (134-434); RBC 3.36 M/mm3 (4.00-5.60); RDW 14.9 % (11.9-15.9); WHITE BLOOD COUNT 10.3 K/mm3 (4.0-10.0)
[2023-11-26 09:18] LABS: CHLORIDE 105 mmol/L (98-107); POTASSIUM 3.9 mmol/L (3.5-5.1); SODIUM 141 mmol/L (136-145)
[2023-11-26 09:28] LABS: ALBUMIN 2.3 g/dl (3.4-5.0); CALCIUM 7.4 mg/dL (8.5-10.1)
[2023-11-26 09:29] LABS: ANION GAP 7 mmol/L (4-13); BLOOD UREA NITROGEN 26.9 mg/dL (7-18); CO2 29 mmol/L (21-32); GLUCOSE,RANDOM 181 mg/dL (74-106); MAGNESIUM 1.9 mg/dL (1.8-2.4)
[2023-11-26 09:32] LABS: CREATININE 7.1 mg/dL (0.55-1.3); PHOSPHOROUS 3.5 mg/dL (2.5-4.9); SGPT/ALT 7 U/L (13-61)
[2023-11-26 09:33] LABS: BILIRUBIN,TOTAL 0.4 mg/dL (0.2-1); TOT PROT 5.8 g/dl (6.4-8.2)
[2023-11-26 09:35] LABS: ALK PHOS 71 U/L (45-117); SGOT/AST < 3 U/L (15-37)
[2023-11-26 10:14] LABS: ANISOCYTOSIS 2+; MACROCYTOSIS 0
[2023-11-27 08:49] LABS: HEMATOCRIT 26.6 % (35.4-49); HEMOGLOBIN 8.7 GM/dL (11.7-16.9); MCH 27.4 pg (25.7-33.7); MCHC 32.8 g/dl (32.0-35.9); MEAN CELL VOLUME 83.4 fl (80-96); MEAN PLT VOLUME 11.1 fl (7.5-11.1); PLATELET COUNT 153 10^3/uL (134-434); RBC 3.19 M/mm3 (4.00-5.60); RDW 14.8 % (11.9-15.9); WHITE BLOOD COUNT 9.2 K/mm3 (4.0-10.0)
[2023-11-27 09:06] LABS: CHLORIDE 103 mmol/L (98-107); POTASSIUM 4.1 mmol/L (3.5-5.1); SODIUM 140 mmol/L (136-145)
[2023-11-27 09:15] LABS: ALBUMIN 2.1 g/dl (3.4-5.0); ANION GAP 7 mmol/L (4-13); BLOOD UREA NITROGEN 36.3 mg/dL (7-18); CO2 30 mmol/L (21-32); MAGNESIUM 1.9 mg/dL (1.8-2.4)
[2023-11-27 09:16] LABS: CALCIUM 7.4 mg/dL (8.5-10.1); GLUCOSE,RANDOM 165 mg/dL (74-106)
[2023-11-27 09:18] LABS: SGOT/AST 6 U/L (15-37); SGPT/ALT 7 U/L (13-61)
[2023-11-27 09:20] LABS: BILIRUBIN,TOTAL 0.4 mg/dL (0.2-1); TOT PROT 5.4 g/dl (6.4-8.2)
[2023-11-27 09:21] LABS: ALK PHOS 66 U/L (45-117)
[2023-11-27 09:28] LABS: CREATININE 8.8 mg/dL (0.55-1.3)
[2023-11-27 09:30] LABS: ANISOCYTOSIS 0; MACROCYTOSIS 0
[2023-11-27 09:31] LABS: PLATELET ESTIMATE ADEQUATE
[2023-11-27] MEDS: PIPERACILLIN/TAZOB 4.5 GM 4.5 GM in DEXTROSE 5%-WATER 100 ML IVPB SCH (11:52)
[2023-11-28 06:59] VITALS: TEMP 98.2
[2023-11-28 08:12] VITALS: BMI 31.6
[2023-11-28 09:18] LABS: BASO % 2.2 % (0-2.0); EOS % 0.7 % (0-4.5); HEMATOCRIT 27.6 % (35.4-49); HEMOGLOBIN 9.1 GM/dL (11.7-16.9); LYMPH % 9.5 % (8-40); MCH 27.1 pg (25.7-33.7); MCHC 33.2 g/dl (32.0-35.9); MEAN CELL VOLUME 81.7 fl (80-96); MEAN PLT VOLUME 10.6 fl (7.5-11.1); NEUT % 73.6 % (42.8-82.8); PLATELET COUNT 150 10^3/uL (134-434); RBC 3.37 M/mm3 (4.00-5.60); WHITE BLOOD COUNT 9.4 K/mm3 (4.0-10.0)
[2023-11-28 09:32] LABS: CHLORIDE 102 mmol/L (98-107); POTASSIUM 4.5 mmol/L (3.5-5.1); SODIUM 137 mmol/L (136-145)
[2023-11-28 09:34] LABS: CALCIUM 7.5 mg/dL (8.5-10.1)
[2023-11-28 09:35] LABS: ALBUMIN 2.3 g/dl (3.4-5.0); ANION GAP 8 mmol/L (4-13); BLOOD UREA NITROGEN 49.8 mg/dL (7-18); CO2 28 mmol/L (21-32); GLUCOSE,RANDOM 140 mg/dL (74-106)
[2023-11-28 09:38] LABS: SGOT/AST 5 U/L (15-37); SGPT/ALT 10 U/L (13-61)
[2023-11-28 09:39] LABS: BILIRUBIN,TOTAL 0.4 mg/dL (0.2-1); TOT PROT 5.9 g/dl (6.4-8.2)
[2023-11-28 09:41] LABS: ALK PHOS 71 U/L (45-117)
[2023-11-28] MEDS ORDERED: SODIUM CHLORIDE 250 ML IV PRN (09:44)
[2023-11-28 09:58] LABS: ANISOCYTOSIS 0; MACROCYTOSIS 0
[2023-11-28] MEDS: HEPARIN NA (PORCINE) 5,000 UNITS/ML 1ML VIAL IVPUSH ONE (12:22)
[2023-11-28] MEDS: EPOETIN ALFA-EPBX 10,000 UNIT/ML VIAL IVPUSH ONE (12:23)
[2023-11-28 13:52] VITALS: BP 138/90; PULSE 68
[2023-11-28] MEDS: CEFTRIAXONE 2 GM in DEXTROSE 5%-WATER 100 ML IVPB SCH (18:15)
== END 2023-11-28 16:30 | disposition home or self-care (01) | DRG 255 ==
LOC: JER 10:33 → JERBED 15:40 → J8W 19:33
PROVIDERS: ADMIT Internal Medicine; ATTEND Nurse Practitioner Acute Care
PROC: 5A1D70Z Performance of Urinary Filtration, Intermittent, Less than 6 Hours Per Day (ICD-10-PCS; 2023-11-25)
PROC: 5A1D70Z Performance of Urinary Filtration, Intermittent, Less than 6 Hours Per Day (ICD-10-PCS; 2023-11-25)
PROC: 5A1D70Z Performance of Urinary Filtration, Intermittent, Less than 6 Hours Per Day (ICD-10-PCS; 2023-11-25)
PROC: 0Y6T0Z0 Detachment at Right 3rd Toe, Complete, Open Approach (ICD-10-PCS; principal; 2023-11-25 07:30)
DX: E11.52 Type 2 diabetes mellitus with diabetic peripheral angiopathy with gangrene (principal); N18.6 End stage renal disease; C92.90 Myeloid leukemia, unspecified, not having achieved remission; I96 Gangrene, not elsewhere classified; L97.518 Non-pressure chronic ulcer of other part of right foot with other specified severity; I12.0 Hypertensive chronic kidney disease with stage 5 chronic kidney disease or end stage renal disease; M86.8X7 Other osteomyelitis, ankle and foot; E11.22 Type 2 diabetes mellitus with diabetic chronic kidney disease; E11.621 Type 2 diabetes mellitus with foot ulcer; I25.10 Atherosclerotic heart disease of native coronary artery without angina pectoris; N28.1 Cyst of kidney, acquired; E11.69 Type 2 diabetes mellitus with other specified complication; E78.00 Pure hypercholesterolemia, unspecified; E11.622 Type 2 diabetes mellitus with other skin ulcer; B96.20 Unspecified Escherichia coli [E. coli] as the cause of diseases classified elsewhere; L08.9 Local infection of the skin and subcutaneous tissue, unspecified; D64.9 Anemia, unspecified; Z89.421 Acquired absence of other right toe(s); Z99.2 Dependence on renal dialysis
CPT/HCPCS: 36415; 70450-TC; 71045-TC-FY; 73630-TC-RT-FY; 73718-TC-RT; 80053; 80061; 81003; 82962; 83036; 83735; 83880; 84100; 84443; 84484; 85025; 85027; 85610; 85730; 87070; 87075; 87086; 87186; 87205; 87340; 88305-TC; 88311-TC; 93005; 93010; 93922; 93925-TC; 94760; 99285-25; G0480; J0131; J1644; J2997; Q5106

== ENCOUNTER 2023-12-07 07:49 | Emergency (ER) | payer SELFPAY ==
[2023-12-07 07:57] VITALS: BP 192/89; PULSE 70; RESP 16; TEMP 98.5; BMI 26.7
== END 2023-12-07 09:36 | disposition home or self-care (01) ==
LOC: JER 07:49 → JERFT 07:49
DX: R21 Rash and other nonspecific skin eruption (principal)
CPT/HCPCS: 99283-25

== ENCOUNTER 2023-12-12 14:00 | Inpatient (IN) | payer OTHER ==
[2023-12-12 17:57] LABS: BASO % 2.7 % (0-2.0); EOS % 1.2 % (0-4.5); HEMATOCRIT 29.6 % (35.4-49); HEMOGLOBIN 9.8 GM/dL (11.7-16.9); LYMPH % 14.2 % (8-40); MCH 26.9 pg (25.7-33.7); MEAN CELL VOLUME 81.5 fl (80-96); MEAN PLT VOLUME 9.2 fl (7.5-11.1); MONO % 9.5 % (3.8-10.2); NEUT % 72.4 % (42.8-82.8); PLATELET COUNT 282 10^3/uL (134-434); RBC 3.63 M/mm3 (4.00-5.60); RDW 15.7 % (11.9-15.9); WHITE BLOOD COUNT 10.5 K/mm3 (4.0-10.0)
[2023-12-12 18:14] LABS: CHLORIDE 103 mmol/L (98-107); POTASSIUM 4.2 mmol/L (3.5-5.1); SODIUM 137 mmol/L (136-145)
[2023-12-12 18:16] LABS: ALBUMIN 3.1 g/dl (3.4-5.0); CALCIUM 7.9 mg/dL (8.5-10.1)
[2023-12-12 18:17] LABS: ANION GAP 10 mmol/L (4-13); BLOOD UREA NITROGEN 58.4 mg/dL (7-18); CO2 24 mmol/L (21-32); GLUCOSE,RANDOM 84 mg/dL (74-106); MAGNESIUM 2.3 mg/dL (1.8-2.4)
[2023-12-12 18:20] LABS: PHOSPHOROUS 6.5 mg/dL (2.5-4.9); SGOT/AST 6 U/L (15-37); SGPT/ALT 8 U/L (13-61)
[2023-12-12 18:21] LABS: BILIRUBIN,TOTAL 0.3 mg/dL (0.2-1); CREATININE 8.4 mg/dL (0.55-1.3); TOT PROT 6.6 g/dl (6.4-8.2)
[2023-12-12 18:22] LABS: ALK PHOS 127 U/L (45-117)
[2023-12-13 03:05] VITALS: BMI 29.3
[2023-12-13] MEDS ORDERED: PATIENT'S OWN MEDICATION (NON-FORMULARY) (Ceftriaxone 2 GM) IVPB SCH (04:50)
[2023-12-13] MEDS: INSULIN ASPART SLIDING SCALE (NOVOLOG) 1 VIAL SQ SCH ×2 (07:01→17:07)
[2023-12-13] MEDS: HEPARIN NA (PORCINE) 5,000 UNITS/ML 1ML VIAL SQ SCH ×2 (07:02→21:56)
[2023-12-13] MEDS: SEVELAMER CARBONATE 800 MG TAB (FP) PO SCH ×2 (07:59→17:58)
[2023-12-13 09:35] LABS: INR 1.06 (0.83-1.09)
[2023-12-13 09:37] LABS: ACTIVATED PTT 32.5 SECONDS (25.2-36.5); HEMATOCRIT 30.4 % (35.4-49); HEMOGLOBIN 9.9 GM/dL (11.7-16.9); MCH 26.9 pg (25.7-33.7); MCHC 32.6 g/dl (32.0-35.9); MEAN CELL VOLUME 82.5 fl (80-96); MEAN PLT VOLUME 9.6 fl (7.5-11.1); PLATELET COUNT 251 10^3/uL (134-434); RBC 3.68 M/mm3 (4.00-5.60); RDW 15.8 % (11.9-15.9); WHITE BLOOD COUNT 9.4 K/mm3 (4.0-10.0)
[2023-12-13 10:07] LABS: CHLORIDE 103 mmol/L (98-107); POTASSIUM 4.5 mmol/L (3.5-5.1); SODIUM 139 mmol/L (136-145)
[2023-12-13 10:11] LABS: CALCIUM 8.5 mg/dL (8.5-10.1)
[2023-12-13 10:12] LABS: ALBUMIN 3.1 g/dl (3.4-5.0); ANION GAP 12 mmol/L (4-13); BLOOD UREA NITROGEN 66.9 mg/dL (7-18); CO2 23 mmol/L (21-32); GLUCOSE,RANDOM 138 mg/dL (74-106); MAGNESIUM 2.4 mg/dL (1.8-2.4)
[2023-12-13 10:15] LABS: PHOSPHOROUS 6.5 mg/dL (2.5-4.9); SGOT/AST 6 U/L (15-37); SGPT/ALT 11 U/L (13-61)
[2023-12-13 10:16] LABS: BILIRUBIN,TOTAL 0.5 mg/dL (0.2-1); TOT PROT 6.6 g/dl (6.4-8.2)
[2023-12-13 10:17] LABS: ALK PHOS 130 U/L (45-117)
[2023-12-13 10:18] LABS: CREATININE 9.4 mg/dL (0.55-1.3)
[2023-12-13] MEDS: SACUBITRIL/VALSARTAN 49 MG-51 MG TABLET PO SCH ×2 (10:43→21:55)
[2023-12-13] MEDS: ASPIRIN COATED 81 MG TABLET.EC PO SCH (10:43)
[2023-12-13] MEDS: TRIAMCINOLONE ACET 0.1% OINT 15 GM TUBE TP SCH ×2 (10:43→22:44)
[2023-12-13] MEDS: metoPROLOL SUCCINATE 25 MG TAB.SR.24H (FP) PO SCH (10:43)
[2023-12-13] MEDS ORDERED: MIDAZOLAM HCL 2 MG/2 ML SINGLE DOSE VIAL ONE (13:20)
[2023-12-13] MEDS ORDERED: ceFAZolin SODIUM 1 GM VIAL ONE (13:20)
[2023-12-13] MEDS ORDERED: PROPOFOL 20 ML ONE (13:21)
[2023-12-13] MEDS: ceFAZolin SODIUM 1 GM VIAL IVPB ONE (13:27)
[2023-12-13] MEDS: CALCIUM CARBONATE 650 MG TABLET PO SCH (13:38)
[2023-12-13] MEDS: LIDOCAINE HCL 1%, 10 MG/ML (20ML VIAL) NR ONE ×2 (13:48)
[2023-12-13] MEDS ORDERED: LACTATED RINGERS SOLUTION 1,000 ML/1,000 ML INFUS.BAG IV SCH (14:10)
[2023-12-13 15:26] VITALS: RESP 18
[2023-12-13] MEDS: metoPROLOL SUCCINATE 25 MG TAB.SR.24H (FP) PO ONE (15:34)
[2023-12-13] MEDS: NILOTINIB HCL 200 MG PO SCH (15:36)
[2023-12-13] MEDS ORDERED: SODIUM CHLORIDE 250 ML IV PRN (16:01)
[2023-12-13] MEDS: TORSEMIDE 20 MG TABLET (FP) PO SCH (17:19)
[2023-12-13] MEDS: ATORVASTATIN CA 80 MG TABLET (FP) PO SCH (21:55)
[2023-12-13] MEDS: hydrALAZINE HCL 10 MG TABLET PO SCH (21:55)
[2023-12-13] MEDS ORDERED: ATORVASTATIN CA 80 MG TABLET (FP) PO SCH (22:00)
[2023-12-13] MEDS ORDERED: NILOTINIB HCL 200 MG PO SCH (22:00)
[2023-12-14] MEDS ORDERED: LABETALOL HCL 20 MG/4 ML VIAL ONE (01:51)
[2023-12-14] MEDS ORDERED: PROPOFOL 40 ML ONE (01:51)
[2023-12-14] MEDS ORDERED: PATIENT'S OWN MEDICATION (NON-FORMULARY) (Ceftriaxone 2 GM Vial) IVPB SCH (02:21)
[2023-12-14] MEDS ORDERED: PATIENT'S OWN MEDICATION (NON-FORMULARY) (Ceftriaxone 2 GM) IVPB SCH (02:21)
[2023-12-14] MEDS: HEPARIN NA (PORCINE) 5,000 UNITS/ML 1ML VIAL IVPUSH ONE (09:40)
[2023-12-14 10:14] LABS: HEMATOCRIT 28.3 % (35.4-49); HEMOGLOBIN 9.2 GM/dL (11.7-16.9); MCH 26.6 pg (25.7-33.7); MCHC 32.6 g/dl (32.0-35.9); MEAN CELL VOLUME 81.5 fl (80-96); MEAN PLT VOLUME 10.4 fl (7.5-11.1); PLATELET COUNT 232 10^3/uL (134-434); RBC 3.47 M/mm3 (4.00-5.60); RDW 15.6 % (11.9-15.9); WHITE BLOOD COUNT 9.6 K/mm3 (4.0-10.0)
[2023-12-14] MEDS: LACTATED RINGERS SOLUTION 1,000 ML/1,000 ML INFUS.BAG IV SCH (10:22)
[2023-12-14 10:30] LABS: CHLORIDE 101 mmol/L (98-107); POTASSIUM 4.8 mmol/L (3.5-5.1); SODIUM 136 mmol/L (136-145)
[2023-12-14 10:31] LABS: ANION GAP 11 mmol/L (4-13); CALCIUM 8.1 mg/dL (8.5-10.1); CO2 24 mmol/L (21-32); GLUCOSE,RANDOM 208 mg/dL (74-106)
[2023-12-14 10:42] LABS: CREATININE 10.5 mg/dL (0.55-1.3)
[2023-12-14] MEDS: EPOETIN ALFA-EPBX 10,000 UNIT/ML VIAL SQ ONE (10:50)
[2023-12-14] MEDS: CEFTRIAXONE 2 GM-D5W BAG 2 GM/50 ML BAG IVPB SCH (11:31)
[2023-12-14] MEDS ORDERED: CEFTRIAXONE 2 GM-D5W BAG 2 GM/50 ML BAG IVPB SCH (12:00)
[2023-12-14] MEDS: ASPIRIN COATED 81 MG TABLET.EC PO SCH (13:52)
[2023-12-14] MEDS: metoPROLOL SUCCINATE 25 MG TAB.SR.24H (FP) PO SCH (13:52)
[2023-12-14] MEDS: CALCIUM CARBONATE 650 MG TABLET PO SCH (13:54)
[2023-12-14] MEDS: amLODIPine BESYLATE 5 MG TABLET (FP) PO ONE ×2 (14:58→16:20)
[2023-12-15 10:38] VITALS: BP 151/79; PULSE 68; TEMP 98.4
[2023-12-15] MEDS: COLLAGENASE CLOSTRIDIUM HIST. 30 GRAMS TUBE TP SCH (12:58)
== END 2023-12-15 13:32 | disposition home or self-care (01) | DRG 314 ==
LOC: JER 14:00 → JERBED 18:25 → J5S 12-13 01:39 → OBSVTOIN 12-13 12:49
PROVIDERS: ADMIT Internal Medicine; ATTEND Nurse Practitioner Family
PROC: 02H633Z Insertion of Infusion Device into Right Atrium, Percutaneous Approach (ICD-10-PCS; 2023-12-13)
PROC: 02PA33Z Removal of Infusion Device from Heart, Percutaneous Approach (ICD-10-PCS; principal; 2023-12-13 16:30)
PROC: 5A1D70Z Performance of Urinary Filtration, Intermittent, Less than 6 Hours Per Day (ICD-10-PCS; 2023-12-14)
DX: T82.590A Other mechanical complication of surgically created arteriovenous fistula, initial encounter (principal); N18.6 End stage renal disease; C92.10 Chronic myeloid leukemia, BCR/ABL-positive, not having achieved remission; I12.0 Hypertensive chronic kidney disease with stage 5 chronic kidney disease or end stage renal disease; E11.22 Type 2 diabetes mellitus with diabetic chronic kidney disease; N28.1 Cyst of kidney, acquired; I25.10 Atherosclerotic heart disease of native coronary artery without angina pectoris; Y83.9 Surgical procedure, unspecified as the cause of abnormal reaction of the patient, or of later complication, without mention of misadventure at the time of the procedure
CPT/HCPCS: 36415; 76000-TC-FY; 80048; 80053; 82962; 83036; 83735; 84100; 85025; 85027; 85610; 85730; 86705; 86803; 86850; 86900; 86901; 87340; 93005; 93010; 93986; 94760; 99285-25; C1750; G0378; J1644; Q5106

== ENCOUNTER 2024-01-13 15:06 | Observation (INO) | payer OTHER ==
[2024-01-13 15:32] VITALS: RESP 18; BMI 28.0
[2024-01-13 17:37] LABS: VENOUS BASE EXCESS 1.6 mmol/L (-2-2); VENOUS O2 SATURATION 25.8 % (70-80); VENOUS PCO2 49.9 mmHg (38-52); VENOUS PH 7.362 (7.310-7.410)
[2024-01-13 17:38] LABS: HEMATOCRIT 35.8 % (35.4-49); HEMOGLOBIN 11.5 GM/dL (11.7-16.9); MCH 26.7 pg (25.7-33.7); MCHC 32.3 g/dl (32.0-35.9); MEAN CELL VOLUME 82.7 fl (80-96); MEAN PLT VOLUME 10.3 fl (7.5-11.1); PLATELET COUNT 140 10^3/uL (134-434); RBC 4.32 M/mm3 (4.00-5.60); RDW 16.7 % (11.9-15.9); WHITE BLOOD COUNT 10.8 K/mm3 (4.0-10.0)
[2024-01-13 17:55] LABS: POTASSIUM 4.8 mmol/L (3.5-5.1)
[2024-01-13 17:57] LABS: ALBUMIN 3.4 g/dl (3.4-5.0); BLOOD UREA NITROGEN 34.2 mg/dL (7-18); CALCIUM 8.6 mg/dL (8.5-10.1); MAGNESIUM 2.1 mg/dL (1.8-2.4)
[2024-01-13 18:00] LABS: CREATININE 6.4 mg/dL (0.55-1.3); INR 1.05 (0.83-1.09); PHOSPHOROUS 3.8 mg/dL (2.5-4.9); PROTHROMBIN TIME (PATIENT) 12.1 SEC (9.7-13.0)
[2024-01-13 18:02] LABS: ACTIVATED PTT 31.5 SECONDS (25.2-36.5); BILIRUBIN,TOTAL 0.6 mg/dL (0.2-1); TOT PROT 6.8 g/dl (6.4-8.2)
[2024-01-13 18:05] LABS: N-TERMINAL BNP 10199.9 pg/ml (5-125)
[2024-01-13 18:51] LABS: ANISOCYTOSIS 3+; HELMET CELLS 1+; MACROCYTOSIS 0; OVALOCYTE 1+; ROULEAU 1+; TEAR DROP CELLS 2+
[2024-01-13] MEDS ORDERED: ACETAMINOPHEN 325 MG TABLET (FP) ONE (19:04)
[2024-01-13] MEDS ORDERED: ASPIRIN 81 MG CHEWABLE TABLETS ONE (19:04)
[2024-01-13] MEDS: ACETAMINOPHEN 500 MG TABLET (FP) PO ONE (19:07)
[2024-01-13] MEDS: ASPIRIN 81 MG CHEWABLE TABLETS PO ONE (19:07)
[2024-01-13] MEDS: ACETAMINOPHEN 1000 MG/100 ML BAG IVPB ONE (19:16)
[2024-01-13] MEDS ORDERED: HEPARIN NA (PORCINE) 5,000 UNITS/ML 1ML VIAL SQ SCH (22:00)
[2024-01-14 06:58] VITALS: BP 179/88; PULSE 66; TEMP 98
[2024-01-14] MEDS: HEPARIN NA (PORCINE) 5,000 UNITS/ML 1ML VIAL SQ SCH (07:39)
[2024-01-14] MEDS: hydrALAZINE HCL 10 MG TABLET PO SCH (07:40)
[2024-01-14] MEDS ORDERED: SEVELAMER CARBONATE 800 MG TAB (FP) PO SCH (08:00)
[2024-01-14] MEDS ORDERED: TORSEMIDE 40 MG PO SCH (10:00)
[2024-01-14] MEDS ORDERED: NILOTINIB HCL 200 MG PO SCH (10:00)
[2024-01-14] MEDS ORDERED: ASPIRIN COATED 81 MG TABLET.EC PO SCH (10:00)
[2024-01-14] MEDS ORDERED: SACUBITRIL/VALSARTAN 49 MG-51 MG TABLET PO SCH (10:00)
[2024-01-14] MEDS ORDERED: hydrALAZINE HCL 10 MG TABLET PO SCH (10:00)
[2024-01-14] MEDS ORDERED: ATORVASTATIN CA 80 MG TABLET (FP) PO SCH (22:00)
== END 2024-01-14 06:50 | disposition left against medical advice (07) ==
LOC: JER 15:06 → JERBED 20:57 → J4S 23:30
PROVIDERS: ADMIT Internal Medicine; ATTEND Internal Medicine
DX: R07.9 Chest pain, unspecified (principal); I12.0 Hypertensive chronic kidney disease with stage 5 chronic kidney disease or end stage renal disease; I25.2 Old myocardial infarction; Z95.1 Presence of aortocoronary bypass graft; E78.5 Hyperlipidemia, unspecified; E11.22 Type 2 diabetes mellitus with diabetic chronic kidney disease; N18.6 End stage renal disease; Z99.2 Dependence on renal dialysis; Z88.8 Allergy status to other drugs, medicaments and biological substances
CPT/HCPCS: 0241U-QW; 36415; 71045-TC-FY; 73630-TC-RT-FY; 80053; 82803; 83735; 83880; 84100; 84484; 85025; 85610; 85730; 93005; 93010; 93971-TC; 99285-25; G0378

== ENCOUNTER 2024-08-03 08:58 | Observation (INO) | payer OTHER ==
[2024-08-03 09:42] VITALS: BMI 19.0
[2024-08-03] MEDS ORDERED: ONDANSETRON 4 MG/2 ML VIAL ONE (10:13)
[2024-08-03] MEDS: ONDANSETRON 4 MG/2 ML VIAL IVPUSH ONE (10:29)
[2024-08-03 10:42] LABS: RDW 17.2 % (12.2-16.4)
[2024-08-03 10:49] LABS: HEMATOCRIT 32.5 % (40.1-51.0); HEMOGLOBIN 10.1 g/dL (13.7-17.5); INR 1.09 (0.83-1.09); MCHC 31.1 g/dl (32.3-36.5); MEAN CELL VOLUME 83.8 fl (79.0-92.2); PLATELET COUNT 196 x10^3/uL (163-337)
[2024-08-03 10:52] LABS: ACTIVATED PTT 30.4 SECONDS (25.2-36.5)
[2024-08-03 11:09] LABS: CHLORIDE 106 mmol/L (98-107); SODIUM 137 mmol/L (136-145)
[2024-08-03 11:12] LABS: ALBUMIN 3.3 g/dl (3.4-5.0); CALCIUM 9.2 mg/dL (8.5-10.1); CO2 19 mmol/L (21-32); GLUCOSE,RANDOM 175 mg/dL (74-106); MAGNESIUM 2.2 mg/dL (1.8-2.4)
[2024-08-03 11:15] LABS: PHOSPHOROUS 5.4 mg/dL (2.5-4.9); SGOT/AST 9 U/L (15-37); SGPT/ALT 10 U/L (13-61)
[2024-08-03 11:16] LABS: BILIRUBIN,TOTAL 0.5 mg/dL (0.2-1)
[2024-08-03 11:17] LABS: TOT PROT 6.7 g/dl (6.4-8.2)
[2024-08-03 11:18] LABS: ALK PHOS 84 U/L (45-117); ANION GAP 12 mmol/L (4-13); CREATININE 11.1 mg/dL (0.55-1.3); POTASSIUM 6.2 mmol/L (3.5-5.1)
[2024-08-03] MEDS ORDERED: ALBUTEROL SO4 0.083% IH SOL 2.5 MG/3 ML VIAL.NEB. NEB ONE ×2 (11:40→12:33)
[2024-08-03] MEDS: ALBUTEROL SO4 0.083% IH SOL 2.5 MG/3 ML VIAL.NEB. NEB SCH (11:45)
[2024-08-03] MEDS ORDERED: SODIUM CHLORIDE 250 ML IV PRN (11:56)
[2024-08-03] MEDS ORDERED: SODIUM ZIRCONIUM CYCLOSILICATE (LOKELMA) 10 GM PACKET ONE (12:21)
[2024-08-03] MEDS: SODIUM ZIRCONIUM CYCLOSILICATE (LOKELMA) 5 GM PACKET PO SCH (12:27)
[2024-08-03] MEDS ORDERED: CALCIUM GLUC IN NACL, ISO-OSM 1 GM/50 ML BAG IVPB ONE (12:33)
[2024-08-03] MEDS ORDERED: DEXTROSE 50%-WATER 25 GM/50 ML DISP.SYRIN ONE (12:33)
[2024-08-03] MEDS ORDERED: INSULIN REGULAR HUMAN 100 UNITS/ML *VIAL ONE (12:34)
[2024-08-03] MEDS ORDERED: SODIUM BICARBONATE 8.4% 50 MEQ/50 ML DISP.SYRIN ONE (12:34)
[2024-08-03] MEDS: INSULIN REGULAR HUMAN 100 UNITS/ML *VIAL IVPUSH ONE (12:47)
[2024-08-03] MEDS: SODIUM BICARBONATE 8.4% 50 MEQ/50 ML DISP.SYRIN IVPUSH ONE (12:47)
[2024-08-03] MEDS: CALCIUM GLUCONATE IN NACL 1 GM/50 ML BAG IVPB ONE (12:47)
[2024-08-03] MEDS: DEXTROSE 50%-WATER 25 GM/50 ML DISP.SYRIN IVPUSH ONE (12:47)
[2024-08-03] MEDS ORDERED: ALPRAZolam 0.25 MG TABLET PO PRN (13:21)
[2024-08-03] MEDS ORDERED: FENTANYL CITRATE/PF 50 MCG/ML VIAL ONE (14:04)
[2024-08-03] MEDS ORDERED: MIDAZOLAM HCL 2 MG/2 ML SINGLE DOSE VIAL ONE (14:04)
[2024-08-03] MEDS: SODIUM CHLORIDE 500 ML IV SCH (14:05)
[2024-08-03] MEDS: MIDAZOLAM HCL 2 MG/2 ML SINGLE DOSE VIAL IVPUSH ONE (14:10)
[2024-08-03] MEDS: FENTANYL CITRATE/PF 50 MCG/ML VIAL IVPUSH ONE (14:10)
[2024-08-03 14:55] LABS: HEPATITIS B SURF AG NON-MATERN NON-REACTIVE (NONREACTIVE)
[2024-08-03 15:16] LABS: HCV DIAGNOSTIC IN-HOUSE W/RFLX NON-REACTIVE (NONREACTIVE); HIV INTERPRETATION NEGATIVE (NEGATIVE)
[2024-08-03] MEDS: SEVELAMER CARBONATE 800 MG TAB (FP) PO SCH (20:44)
[2024-08-03] MEDS: INSULIN ASPART SLIDING SCALE (NOVOLOG) 1 VIAL SQ SCH (21:41)
[2024-08-04 08:53] VITALS: RESP 18
[2024-08-04] MEDS: HEPARIN NA (PORCINE) 5,000 UNITS/ML 1ML VIAL SQ SCH (09:15)
[2024-08-04] MEDS: ASPIRIN COATED 81 MG TABLET.EC PO SCH (09:16)
[2024-08-04] MEDS ORDERED: NILOTINIB HCL 200 MG PO SCH (11:15)
[2024-08-04] MEDS: SACUBITRIL/VALSARTAN 49 MG-51 MG TABLET PO SCH (12:29)
[2024-08-04 15:38] LABS: EPI CELLS 6 /uL (0-25.1); HYALINE CASTS 0 /uL (0-3.1); PH,URINE 8.5 (5.0-8.0); URINE APPEARANCE CLEAR; URINE BACTERIA 13 /uL (0-1359); URINE BILIRUBIN NEGATIVE (NEGATIVE); URINE COLOR YELLOW; URINE GLUCOSE (UA) 1+ (NEGATIVE); URINE KETONE NEGATIVE (NEGATIVE); URINE LEUK ESTERASE TRACE (NEGATIVE); URINE NITRITE NEGATIVE (NEGATIVE); URINE PROTEIN 3+ (NEGATIVE); URINE RBC 377 /uL (0-23.9); URINE UROBILINOGEN 0.2 mg/dL (0.2-1.0); URINE WBC 73 /uL (0-25.8)
[2024-08-04] MEDS: amLODIPine BESYLATE 10 MG TABLET (FP) PO SCH (16:06)
[2024-08-04 16:48] LABS: ABSOLUTE IMMATURE GRANULOCYTES 5.75 x10^3/uL (0.0-0.031); BASOPHILS # 0.36 x10^3/uL (0.01-0.08); EOSINOPHIL % 0.1 % (0.8-7.0); EOSINOPHILS # 0.02 x10^3/uL (0.04-0.54); HEMATOCRIT 32.1 % (40.1-51.0); MCHC 31.2 g/dl (32.3-36.5); MONOCYTE # 2.77 x10^3/uL (0.30-0.82); MONOCYTE % 10.2 % (5.3-12.2); PLATELET COUNT 163 x10^3/uL (163-337); RDW 17.4 % (12.2-16.4)
[2024-08-04] MEDS: hydrALAZINE HCL 25 MG TABLET (FP) PO SCH (17:04)
[2024-08-04 18:26] LABS: CHLORIDE 101 mmol/L (98-107); POTASSIUM 4.7 mmol/L (3.5-5.1); SODIUM 139 mmol/L (136-145)
[2024-08-04 18:28] LABS: CALCIUM 9.1 mg/dL (8.5-10.1); GLUCOSE,RANDOM 139 mg/dL (74-106)
[2024-08-04 18:29] LABS: ALBUMIN 3.2 g/dl (3.4-5.0); ANION GAP 13 mmol/L (4-13); BLOOD UREA NITROGEN 53.1 mg/dL (7-18); CO2 24 mmol/L (21-32)
[2024-08-04 18:32] LABS: SGOT/AST 7 U/L (15-37); SGPT/ALT 9 U/L (13-61)
[2024-08-04 18:33] LABS: BILIRUBIN,TOTAL 0.4 mg/dL (0.2-1); TOT PROT 6.5 g/dl (6.4-8.2)
[2024-08-04 18:34] LABS: CREATININE 9.8 mg/dL (0.55-1.3)
[2024-08-04 18:35] LABS: ALK PHOS 84 U/L (45-117)
[2024-08-04] MEDS: ATORVASTATIN CA 80 MG TABLET (FP) PO SCH (21:13)
[2024-08-04] MEDS: DOCUSATE SODIUM 100 MG CAPSULE (FP) PO SCH (21:13)
[2024-08-05 08:32] VITALS: TEMP 98.8
[2024-08-05 08:34] VITALS: BP 165/100; PULSE 94
[2024-08-05] MEDS: hydrALAZINE HCL 50 MG TABLET (FP) PO SCH (08:40)
== END 2024-08-05 09:08 | disposition home or self-care (01) ==
LOC: JER 08:58 → JERBED 12:28 → J4W 19:04
PROVIDERS: ADMIT Internal Medicine; ATTEND Internal Medicine
PROC: 0J2TXYZ Change Other Device in Trunk Subcutaneous Tissue and Fascia, External Approach (ICD-10-PCS; principal; 2024-08-03)
PROC: 3E0F7GC Introduction of Other Therapeutic Substance into Respiratory Tract, Via Natural or Artificial Opening (ICD-10-PCS; 2024-08-03)
PROC: 3E0337Z Introduction of Electrolytic and Water Balance Substance into Peripheral Vein, Percutaneous Approach (ICD-10-PCS; 2024-08-03)
PROC: 3E023GC Introduction of Other Therapeutic Substance into Muscle, Percutaneous Approach (ICD-10-PCS; 2024-08-03)
PROC: 3E033VG Introduction of Insulin into Peripheral Vein, Percutaneous Approach (ICD-10-PCS; 2024-08-03)
PROC: 3E033GC Introduction of Other Therapeutic Substance into Peripheral Vein, Percutaneous Approach (ICD-10-PCS; 2024-08-03)
DX: Z45.2 Encounter for adjustment and management of vascular access device (principal); I25.10 Atherosclerotic heart disease of native coronary artery without angina pectoris; E11.22 Type 2 diabetes mellitus with diabetic chronic kidney disease; I12.0 Hypertensive chronic kidney disease with stage 5 chronic kidney disease or end stage renal disease; N18.6 End stage renal disease; Z99.2 Dependence on renal dialysis; D64.9 Anemia, unspecified; C92.10 Chronic myeloid leukemia, BCR/ABL-positive, not having achieved remission; N28.1 Cyst of kidney, acquired
CPT/HCPCS: 36415; 36581; 37248; 71045-TC-FY; 80053; 81003; 82962; 83735; 84100; 84484; 85025; 85610; 85730; 86704; 86707; 86803; 86850; 86900; 86901; 87070; 87086; 87340; 87389; 88300-TC; 93005; 93010; 94640; 96361; 96365; 96372; 96375; 99285-25; G0378

== ENCOUNTER 2024-09-17 14:41 | Emergency (ER) | payer OTHER ==
[2024-09-17 15:19] VITALS: RESP 16; TEMP 98.4; BMI 21.2
[2024-09-17] MEDS ORDERED: ONDANSETRON 4 MG/2 ML VIAL ONE (15:44)
[2024-09-17 15:46] LABS: MEAN CELL VOLUME 83.4 fl (79.0-92.2)
[2024-09-17] MEDS: ONDANSETRON 4 MG/2 ML VIAL IVPUSH ONE (15:49)
[2024-09-17 15:50] LABS: MCHC 31.3 g/dl (32.3-36.5); RDW 18.0 % (12.2-16.4)
[2024-09-17 16:15] LABS: GLUCOSE,RANDOM 178.0 mg/dL (74-106); TOT PROT 7.0 g/dl (6.4-8.2)
[2024-09-17 16:16] LABS: CO2 20.0 mmol/L (21-32)
[2024-09-17 16:18] LABS: ALK PHOS 86.0 U/L (40-150)
[2024-09-17 16:21] LABS: CREATININE 6.71 mg/dL (0.55-1.3); SGOT/AST 18.0 U/L (5-34); SGPT/ALT 9.0 U/L (0-55)
[2024-09-17 17:20] VITALS: BP 111/72; PULSE 92
== END 2024-09-17 17:33 | disposition home or self-care (01) ==
LOC: JER 14:41
PROC: 3E033GC Introduction of Other Therapeutic Substance into Peripheral Vein, Percutaneous Approach (ICD-10-PCS; principal; 2024-09-17)
DX: R11.2 Nausea with vomiting, unspecified (principal); T45.8X5A Adverse effect of other primarily systemic and hematological agents, initial encounter
CPT/HCPCS: 36415; 80053; 83605; 83690; 83735; 84100; 85025; 93005; 93010; 99284-25

== ENCOUNTER 2024-11-09 13:43 | Observation (INO) | payer OTHER ==
[2024-11-09 16:07] LABS: MCHC 30.7 g/dl (32.3-36.5); MEAN CELL VOLUME 84.5 fl (79.0-92.2)
[2024-11-09 16:08] LABS: RDW 17.8 % (12.2-16.4)
[2024-11-09 16:16] LABS: INR 1.19 (0.83-1.09); PROTHROMBIN TIME (PATIENT) 13.0 SEC (9.7-13.0)
[2024-11-09 16:19] LABS: ACTIVATED PTT 31.6 SECONDS (25.2-36.5)
[2024-11-09 16:27] LABS: GLUCOSE,RANDOM 102 mg/dL (74-106); TOT PROT 6.6 g/dl (6.4-8.2)
[2024-11-09 16:28] LABS: CO2 26 mmol/L (21-32)
[2024-11-09 16:30] LABS: ALK PHOS 77 U/L (40-150)
[2024-11-09 16:32] LABS: SGOT/AST 10 U/L (5-34); SGPT/ALT < 6 U/L (0-55)
[2024-11-09 16:33] LABS: CREATININE 4.95 mg/dL (0.55-1.3)
[2024-11-09] MEDS ORDERED: ATORVASTATIN CA 20 MG TABLET (FP) PO ONE (21:17)
[2024-11-09] MEDS: ATORVASTATIN CA 20 MG TABLET (FP) PO ONE (21:43)
[2024-11-09 22:03] LABS: URINE APPEARANCE CLEAR; URINE BILIRUBIN NEGATIVE (NEGATIVE); URINE COLOR YELLOW; URINE GLUCOSE (UA) 100 (NEGATIVE); URINE KETONE NEGATIVE (NEGATIVE); URINE PROTEIN 300 (NEGATIVE)
[2024-11-09 22:04] LABS: URINE UROBILINOGEN 0.2 mg/dL (0.2-1.0)
[2024-11-09 22:13] LABS: URINE LEUK ESTERASE 1+ (NEGATIVE); URINE NITRITE NEGATIVE (NEGATIVE)
[2024-11-09] MEDS: ASPIRIN 81 MG CHEWABLE TABLETS PO SCH (22:21)
[2024-11-09] MEDS: INSULIN ASPART SLIDING SCALE (NOVOLOG) 1 VIAL SQ SCH (22:21)
[2024-11-09] MEDS ORDERED: HEPARIN NA (PORCINE) 5,000 UNITS/ML 1ML VIAL ONE (22:26)
[2024-11-09] MEDS: HEPARIN NA (PORCINE) 5,000 UNITS/ML 1ML VIAL SQ SCH (22:37)
[2024-11-09] MEDS: NILOTINIB HCL 200 MG PO SCH (22:45)
[2024-11-09] MEDS ORDERED: ATORVASTATIN CA 80 MG TABLET (FP) ONE (22:47)
[2024-11-09] MEDS: SACUBITRIL/VALSARTAN 49 MG-51 MG TABLET PO SCH ×2 (22:59)
[2024-11-09] MEDS: ATORVASTATIN CA 80 MG TABLET (FP) PO SCH (22:59)
[2024-11-10 03:45] VITALS: RESP 19; BMI 31.8
[2024-11-10 07:54] LABS: MCHC 31.3 g/dl (32.3-36.5); MEAN CELL VOLUME 83.4 fl (79.0-92.2); RDW 17.2 % (12.2-16.4)
[2024-11-10] MEDS: SEVELAMER CARBONATE 800 MG TAB (FP) PO SCH (08:31)
[2024-11-10 08:37] LABS: GLUCOSE,RANDOM 133.0 mg/dL (74-106)
[2024-11-10 08:38] LABS: CO2 23.0 mmol/L (21-32)
[2024-11-10 08:43] LABS: CREATININE 6.38 mg/dL (0.55-1.3)
[2024-11-10 09:33] VITALS: BP 170/96; PULSE 56; TEMP 99.2
[2024-11-10] MEDS: hydrALAZINE HCL 50 MG TABLET (FP) PO SCH (12:10)
== END 2024-11-10 15:22 | disposition home or self-care (01) ==
LOC: JER 13:43 → UNDOADMOB 19:26 → JERBED 19:26 → INTOOBSV 19:26 → JERBED 21:10 → J4S 11-10 01:11 → JERBED 11-10 01:11
PROVIDERS: ADMIT Hospitalist; ATTEND Student in an Organized Health Care Education/Training Program
PROC: 3E023GC Introduction of Other Therapeutic Substance into Muscle, Percutaneous Approach (ICD-10-PCS; principal; 2024-11-09)
DX: E11.22 Type 2 diabetes mellitus with diabetic chronic kidney disease (principal); I12.0 Hypertensive chronic kidney disease with stage 5 chronic kidney disease or end stage renal disease; N18.6 End stage renal disease; Z99.2 Dependence on renal dialysis; I25.10 Atherosclerotic heart disease of native coronary artery without angina pectoris; I10 Essential (primary) hypertension; Z95.1 Presence of aortocoronary bypass graft; G43.909 Migraine, unspecified, not intractable, without status migrainosus; C92.10 Chronic myeloid leukemia, BCR/ABL-positive, not having achieved remission; Z91.148 Patient's other noncompliance with medication regimen for other reason
CPT/HCPCS: 36415; 36430; 71045-TC-FY; 76937; 80048; 80053; 81003; 82962; 83735; 84100; 84484; 85025; 85610; 85730; 86850; 86900; 86901; 86922; 87086; 93005; 93010; 99285-25; G0378; P9058